=== PATIENT | male | born 1950 | race Caucasian/White ===

== ENCOUNTER → 2016-09-22 | Outpatient (CLI) | payer OTHER ==
[~2016-09-22] MED LIST: ALBU8I INH; ALBUAER3 INH; BUPR-197 PO; BUPR100CR PO; DEXE15CA PO; FLON0.053; FLOVENT110 MCG/A INH; FLUT1SPR5 EACH NARE; FLUTI110I INH; MECL-62 PO; METH2.5 PO; OMEP20TA PO; PRIL20CA PO; RAPA4CAP PO; TAMS0.4C67 PO; THEO300T11 PO; THEO300T4 PO; TREX15TA PO
[2016-09-22 14:45] LABS: AUTOMATED NEUTROPHIL # 3.7 TH/MM3 (1.8-7.7); BASOPHIL % 0.8 % (0.0-2.0); EOSINOPHIL # 0.1 TH/MM3 (0-0.4); EOSINOPHIL % 2.2 % (0.0-4.0); HEMATOCRIT 40.3 % (39.0-51.0); LYMPH % 29.5 % (9.0-44.0); LYMPHOCYTE # 1.8 TH/MM3 (1.0-4.8); MEAN CELL VOLUME 100.4 FL (80.0-100.0); MEAN CORPUSCULAR HGB CONC 34.9 % (32.0-36.0); MONO % 6.9 % (0.0-8.0); NEUT % 60.6 % (16.0-70.0); PLATELET COUNT 93 TH/MM3 (150-450); RED BLOOD COUNT 4.02 MIL/MM3 (4.50-5.90); RED CELL DISTRIBUTION WIDTH 13.4 % (11.6-17.2); WHITE BLOOD COUNT 6.1 TH/MM3 (4.0-11.0)
[2016-09-22 15:04] LABS: ALT (GPT) 47 U/L (12-78); ANION GAP 8 MEQ/L (5-15); AST (GOT) 58 U/L (15-37); BICARBONATE 28.1 MEQ/L (21.0-32.0); BLOOD UREA NITROGEN 10 MG/DL (7-18); CHLORIDE 104 MEQ/L (98-107); GLOMERULAR FILTRATION RATE 95 ML/MIN (>89); GLUCOSE,FASTING 91 MG/DL (74-99); POTASSIUM 3.7 MEQ/L (3.5-5.1); SODIUM (NA) 140 MEQ/L (136-145)
[2016-09-22 15:07] LABS: ALKALINE PHOSPHATASE 163 U/L (45-117)
[2016-09-22 15:25] LABS: HEMO FLAGS AUTO DIFF
[2016-09-22 15:26] LABS: SCAN/DIFF AUTO DIFF CONFIRMED
[2016-09-22 15:27] LABS: PLATELET ESTIMATE SMEAR LOW (NORMAL); PLATELET MORPHOLOGY NORMAL (NORMAL)
== END ==
LOC: CLAB 14:26
PROVIDERS: ATTEND Internal Medicine Rheumatology
DX: L40.0 Psoriasis vulgaris (principal)
CPT/HCPCS: 36415; 80053; 85025

== ENCOUNTER → 2016-12-30 | Outpatient (CLI) | payer OTHER ==
[~2016-12-30] MED LIST changes: -ALBU8I INH; -BUPR-197 PO; -FLON0.053; -FLOVENT110 MCG/A INH; -METH2.5 PO; -PRIL20CA PO; -TAMS0.4C67 PO; -THEO300T11 PO
[2016-12-30 14:53] LABS: HEMATOCRIT 36.4 % (39.0-51.0); MEAN CELL VOLUME 102.9 FL (80.0-100.0); MEAN CORPUSCULAR HEMOGLOBIN 35.5 PG (27.0-34.0); MEAN CORPUSCULAR HGB CONC 34.5 % (32.0-36.0); PLATELET COUNT 90 TH/MM3 (150-450); RED BLOOD COUNT 3.54 MIL/MM3 (4.50-5.90); WHITE BLOOD COUNT 4.9 TH/MM3 (4.0-11.0)
[2016-12-30 15:01] LABS: REVIEW FLAG FINAL
[2016-12-30 15:10] LABS: ALT (GPT) 38 U/L (12-78); ANION GAP 7 MEQ/L (5-15); AST (GOT) 56 U/L (15-37); BICARBONATE 25.4 MEQ/L (21.0-32.0); BLOOD UREA NITROGEN 9 MG/DL (7-18); CHLORIDE 110 MEQ/L (98-107); GLOMERULAR FILTRATION RATE 108 ML/MIN (>89); GLUCOSE,FASTING 94 MG/DL (74-99); POTASSIUM 3.7 MEQ/L (3.5-5.1); SODIUM (NA) 142 MEQ/L (136-145)
[2016-12-30 15:12] LABS: ALKALINE PHOSPHATASE 170 U/L (45-117); TOTAL BILIRUBIN ADULT 1.5 MG/DL (0.2-1.0)
== END ==
LOC: CLAB 14:27
PROVIDERS: ATTEND Internal Medicine Rheumatology
DX: L40.0 Psoriasis vulgaris (principal); N40.1 Benign prostatic hyperplasia with lower urinary tract symptoms; Z79.899 Other long term (current) drug therapy
CPT/HCPCS: 36415; 80053; 84153; 85027

== ENCOUNTER → 2017-05-30 | Outpatient (CLI) | payer OTHER ==
[2017-05-30 10:57] LABS: AUTOMATED NEUTROPHIL # 4.5 TH/MM3 (1.8-7.7); BASOPHIL % 0.4 % (0.0-2.0); EOSINOPHIL # 0.1 TH/MM3 (0-0.4); EOSINOPHIL % 1.6 % (0.0-4.0); HEMATOCRIT 40.1 % (39.0-51.0); LYMPH % 21.1 % (9.0-44.0); LYMPHOCYTE # 1.3 TH/MM3 (1.0-4.8); MEAN CELL VOLUME 105.6 FL (80.0-100.0); MEAN CORPUSCULAR HEMOGLOBIN 35.9 PG (27.0-34.0); NEUT % 70.9 % (16.0-70.0); PLATELET COUNT 77 TH/MM3 (150-450); RED CELL DISTRIBUTION WIDTH 16.3 % (11.6-17.2); WHITE BLOOD COUNT 6.3 TH/MM3 (4.0-11.0)
[2017-05-30 10:58] LABS: HEMO FLAGS AUTO DIFF
[2017-05-30 11:32] LABS: ANION GAP 11 MEQ/L (5-15); AST (GOT) 115 U/L (15-37); BICARBONATE 23.5 MEQ/L (21.0-32.0); BLOOD UREA NITROGEN 14 MG/DL (7-18); CHLORIDE 106 MEQ/L (98-107); GLOMERULAR FILTRATION RATE 97 ML/MIN (>89); GLUCOSE,FASTING 96 MG/DL (74-99); POTASSIUM 3.5 MEQ/L (3.5-5.1); SODIUM (NA) 140 MEQ/L (136-145)
[2017-05-30 11:34] LABS: ALT (GPT) 48 U/L (12-78)
[2017-05-30 11:37] LABS: ALKALINE PHOSPHATASE 268 U/L (45-117); HDL CHOLESTEROL 65.1 MG/DL (40.0-60.0); LDL CHOLESTEROL 96 MG/DL (0-99); TOTAL BILIRUBIN ADULT 4.9 MG/DL (0.2-1.0)
[2017-05-30 12:20] LABS: PLATELET ESTIMATE SMEAR LOW (NORMAL); PLATELET MORPHOLOGY NORMAL (NORMAL); SCAN/DIFF AUTO DIFF CONFIRMED
== END ==
LOC: CLAB 10:24
PROVIDERS: ATTEND Family Medicine
DX: E78.5 Hyperlipidemia, unspecified (principal); R79.89 Other specified abnormal findings of blood chemistry; D69.6 Thrombocytopenia, unspecified
CPT/HCPCS: 36415; 80053; 80061; 85025

== ENCOUNTER 2017-07-10 17:12 | Inpatient (IN) | payer OTHER ==
[~2017-07-10] VITALS: Ht 177.8 cm; Wt 75.0 kg
[~2017-07-10 17:12] MED LIST changes: -OMEP20TA PO; +OMEP20TA93 PO
[2017-07-10 17:15] VITALS: BP 143/71; PULSE 118; RESP 16; TEMP 98.5; O2SAT 97
[2017-07-10] MEDS ORDERED: FOLI800T PO (17:36)
[2017-07-10] MEDS ORDERED: DIAZ10TA PO (17:36)
[2017-07-10] MEDS ORDERED: THEO300T12 PO (17:36)
[2017-07-10] MEDS ORDERED: SODIUM CHLOR 0.9% 1000 ML INJ 1,000 ML IV SCH (18:44)
[2017-07-10] MEDS ORDERED: ONDANSETRON HCL 4 MG/2 ML VIAL IVP ONE (18:45)
[2017-07-10] MEDS ORDERED: SODIUM CHLORIDE 0.9% FLUSH 10 ML FLUSH IV FLUSH PRN ×2 (18:45→22:00)
--- NOTE | 2017-07-10 18:46 | PD ---
HPI Chief Complaint: Abdominal Pain Time Seen by Provider: 18:30 Travel History International Travel<30 days: No Contact w/Intl Traveler<30days: No Traveled to known affect area: No History of Present Illness HPI 67-year-old male presents to the emergency department for evaluation of nausea and vomiting as well as abdominal pain. Patient states he has not been able to eat in the past 4 days. He also reports decreased appetite. Patient states he has an appointment for consultation with Dr. Newman in the next upcoming few days. He has bilateral inguinal hernias. Patient states he does have pain to this area as well as diffuse abdominal pain. Reports chronic abdominal distention. He does state that he drinks 4 alcoholic beverages daily. He states that his 4 years ago and he is having a hard time getting over it. Patient denies any fevers or chills. No chest pain or shortness of breath. Severity is moderate. No exacerbating or alleviating factors. 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) Social History Alcohol Use: Yes (DAILY 3 DRINKS VODKA) Tobacco Use: Yes (3 CIGARETTES/ DAY) Substance Use: No Allergies-Medications (Allergen,Severity, Reaction): Coded Allergies: Influenza Virus Vaccines (Unverified Allergy, Intermediate, SKIN REACTION , 07/10/17) levofloxacin (Unverified Allergy, Mild, "WEAKENED TENDONS", 07/10/17) Reported Meds & Prescriptions Reported Meds & Active Scripts Active Reported Diazepam 10 Mg Tab 10 Mg PO HS PRN Theophylline ER 12 HR (Theophylline) 300 Mg Tab 300 Mg PO Q12H Rapaflo (Silodosin) 4 Mg Cap 4 Mg PO DAILY Omeprazole 20 Mg Tab 20 Mg PO DAILY Trexall (Methotrexate) 15 Mg Tab 15 Mg PO Q7D Flovent Hfa 12 GM Inh (Fluticasone Propionate) 110 Mcg/Act Inh 1 Puff INH BID Flonase Nasal [place] (Fluticasone Nasal [place]) 50 Mcg/Act [place] 50 Mcg EACH NARE DAILY Dexedrine (Dextroamphetamine Sulfate) 15 Mg Cap 15 Mg PO BID Wellbutrin SR 12 HR (Bupropion HCl) 100 Mg Tab 100 Mg PO BID Proair Hfa 8.5 GM Inh (Albuterol Sulfate) 90 Mcg/Act Aer 1 Puff INH Q4H PRN 108 mcg/actuation Review of Systems Except as stated in HPI: all other systems reviewed are Neg Physical Exam Narrative GENERAL: Well-nourished, well-developed male patient, ambulatory. Afebrile. SKIN: Focused skin assessment warm/dry. Patient is jaundiced. HEAD: Normocephalic. Atraumatic. EYES: No injection or drainage. NECK: Supple, trachea midline. No JVD or lymphadenopathy. CARDIOVASCULAR: Regular rate and rhythm without murmurs, gallops, or rubs. RESPIRATORY: Breath sounds equal bilaterally. No accessory muscle use. Lungs sounds are clear to auscultation. GASTROINTESTINAL: Abdomen soft and distended. He has diffuse tenderness to palpation. Bilateral inguinal hernias are soft and easily reducible. No evidence of incarceration. MUSCULOSKELETAL: No cyanosis, or edema. BACK: Nontender without obvious deformity. No CVA tenderness. Data Data Last Documented VS Vital Signs Date Time Temp Pulse Resp B/P (MAP) Pulse Ox O2 Delivery O2 Flow Rate FiO2 07/10/17 19:29 19 99 Room Air 07/10/17 17:15 98.5 118 Orders Orders Complete Blood Count With Diff (07/10/17 18:44) Comprehensive Metabolic Panel (07/10/17 18:44) Lipase (07/10/17 18:44) Prothrombin Time / Inr (Pt) (07/10/17 18:44) Act Partial Throm Time (Ptt) (07/10/17 18:44) Urinalysis - C+S If Indicated (07/10/17 18:44) Ct Abd/Pel W Iv Contrast(Rout) (07/10/17 18:44) Iv Access Insert/Monitor (07/10/17 18:44) Ecg Monitoring (07/10/17 18:44) Oximetry (07/10/17 18:44) Ondansetron Inj (Zofran Inj) (07/10/17 18:45) Sodium Chlor 0.9% 1000 Ml Inj (Ns 1000 M (07/10/17 18:44) Sodium Chloride 0.9% Flush (Ns Flush) (07/10/17 18:45) Iohexol 350 Inj (Omnipaque 350 Inj) (07/10/17 19:49) Potassium Chloride (Kcl) (07/10/17 20:45) Sodium Chlor 0.9% 1000 Ml Inj (Ns 1000 M (07/10/17 20:45) Admit Order (Ed Use Only) (07/10/17 21:14) Labs Laboratory Tests Test 07/10/17 18:40 White Blood Count 6.8 TH/MM3 Red Blood Count 3.66 MIL/MM3 Hemoglobin 13.4 GM/DL Hematocrit 39.4 % Mean Corpuscular Volume 107.6 FL Mean Corpuscular Hemoglobin 36.7 PG Mean Corpuscular Hemoglobin Concent 34.1 % Red Cell Distribution Width 16.7 % Platelet Count 102 TH/MM3 Mean Platelet Volume 9.0 FL Neutrophils (%) (Auto) 67.1 % Lymphocytes (%) (Auto) 22.1 % Monocytes (%) (Auto) 8.4 % Eosinophils (%) (Auto) 1.6 % Basophils (%) (Auto) 0.8 % Neutrophils # (Auto) 4.5 TH/MM3 Lymphocytes # (Auto) 1.5 TH/MM3 Monocytes # (Auto) 0.6 TH/MM3 Eosinophils # (Auto) 0.1 TH/MM3 Basophils # (Auto) 0.1 TH/MM3 CBC Comment DIFF FINAL Differential Comment Prothrombin Time 17.9 SEC Prothromb Time International Ratio 1.6 RATIO Activated Partial Thromboplast Time 34.5 SEC Blood Urea Nitrogen 8 MG/DL Creatinine 0.80 MG/DL Random Glucose 127 MG/DL Total Protein 6.5 GM/DL Albumin 2.8 GM/DL Calcium Level 8.4 MG/DL Alkaline Phosphatase 199 U/L Aspartate Amino Transf (AST/SGOT) 79 U/L Alanine Aminotransferase (ALT/SGPT) 45 U/L Total Bilirubin 5.0 MG/DL Sodium Level 135 MEQ/L Potassium Level 3.2 MEQ/L Chloride Level 101 MEQ/L Carbon Dioxide Level 25.8 MEQ/L Anion Gap 8 MEQ/L Estimat Glomerular Filtration Rate 97 ML/MIN Lipase 187 U/L MDM Medical Decision Making Medical Screen Exam Complete: Yes Emergency Medical Condition: Yes Medical Record Reviewed: Yes Interpretation(s) Last Impressions Abdomen/Pelvis CT 07/10/17 2558 Signed Impressions: Service Date/Time: Monday, July 10, 2017 19:42 - CONCLUSION: 1. Liver demonstrates features at diagnostic of cirrhosis and possibly coexisting steatosis. No focal liver lesion is identified. There are associated findings related to the chronic liver disease indicating portal hypertension including a recannulized paraumbilical vein, collateral blood vessels, ascites, and splenomegaly. 2. Bilateral inguinal hernias containing fluid and fat. Pal Light MD Differential Diagnosis Acute pancreatitis versus liver failure versus diverticulitis versus bowel obstruction versus UTI versus gastroenteritis Narrative Course 67-year-old male presents to the emergency department for decreased uptake, vomiting, abdominal pain. Patient appears jaundiced on exam. CBC, CMP, lipase , PTT, PT/INR, UA are ordered and pending. CT abdomen/pelvis with IV contrast is ordered and pending. Patient is given normal saline 1 L IV bolus, Zofran 4 mg IV. CBC shows no acute abnormality. CMP shows hyponatremia 135, hypokalemia of 3.2 , glucose 127, total bilirubin 5.0, AST 79, alkaline phosphatase 199. Lipase is 187. PT is 17.9, INR 1.6, PTT 34.5. UA [-]. CT abdomen/pelvis shows 1. Liver demonstrates features at diagnostic of cirrhosis and possibly coexisting steatosis. No focal liver lesion is identified. There are associated findings related to the chronic liver disease indicating portal hypertension including a recannulized paraumbilical vein, collateral blood vessels, ascites, and splenomegaly; 2. Bilateral inguinal hernias containing fluid and fat. Upon reexamination, patient still tachycardic with heart rate in the 120s. He is given another liter of IV fluids. Patient will be admitted to hospital for liver cirrhosis, dehydration. Residents accepted admission. Diagnosis Primary Impression: Liver cirrhosis Qualified Codes: K70.31 - Alcoholic cirrhosis of liver with ascites Additional Impressions: Nausea & vomiting Qualified Codes: R11.2 - Nausea with vomiting, unspecified Dehydration Admitting Information Admitting Physician Requests: Heather Hooper Jul 10, 2017 18:46
[2017-07-10 19:14] LABS: AUTOMATED NEUTROPHIL # 4.5 TH/MM3 (1.8-7.7); BASOPHIL # 0.1 TH/MM3 (0-0.2); BASOPHIL % 0.8 % (0.0-2.0); EOSINOPHIL # 0.1 TH/MM3 (0-0.4); EOSINOPHIL % 1.6 % (0.0-4.0); HEMATOCRIT 39.4 % (39.0-51.0); HEMO FLAGS DIFF FINAL; LYMPH % 22.1 % (9.0-44.0); LYMPHOCYTE # 1.5 TH/MM3 (1.0-4.8); MEAN CELL VOLUME 107.6 FL (80.0-100.0); MEAN CORPUSCULAR HEMOGLOBIN 36.7 PG (27.0-34.0); MEAN CORPUSCULAR HGB CONC 34.1 % (32.0-36.0); MONO % 8.4 % (0.0-8.0); NEUT % 67.1 % (16.0-70.0); PLATELET COUNT 102 TH/MM3 (150-450); RED BLOOD COUNT 3.66 MIL/MM3 (4.50-5.90); RED CELL DISTRIBUTION WIDTH 16.7 % (11.6-17.2); WHITE BLOOD COUNT 6.8 TH/MM3 (4.0-11.0)
[2017-07-10 19:24] LABS: ALT (GPT) 45 U/L (12-78); ANION GAP 8 MEQ/L (5-15); AST (GOT) 79 U/L (15-37); BICARBONATE 25.8 MEQ/L (21.0-32.0); BLOOD UREA NITROGEN 8 MG/DL (7-18); CHLORIDE 101 MEQ/L (98-107); GLOMERULAR FILTRATION RATE 97 ML/MIN (>89); POTASSIUM 3.2 MEQ/L (3.5-5.1); SODIUM (NA) 135 MEQ/L (136-145)
[2017-07-10 19:27] LABS: ALKALINE PHOSPHATASE 199 U/L (45-117)
[2017-07-10 19:29] VITALS: RESP 19; O2SAT 99
[2017-07-10 19:37] LABS: APTT (PATIENT) 34.5 SEC (24.3-30.1); INTERNATIONAL NORMALIZED RATIO 1.6 RATIO; PROTHROMBIN TIME - PATIENT 17.9 SEC (9.8-11.6)
[2017-07-10] MEDS ORDERED: IOHEXOL 350 MG/ML 10 ML VIAL (for RAD DIAG) IVCONTRAST ONE (19:49)
--- NOTE | 2017-07-10 20:08 | RADRPT ---
EXAM DATE/TIME: 07/10/2017 19:42 [facility] COMPARISON: No previous studies available for comparison. INDICATIONS : Diffuse abdomen pain with nausea and vomiting for four days. IV CONTRAST: 72 cc Omnipaque 350 (iohexol) IV ORAL CONTRAST: No oral contrast ingested. RADIATION DOSE: 8.37 CTDIvol (mGy) MEDICAL HISTORY : Gastroesophageal reflux disease. Carcinoma, basal cell. Hernia, inguinal. SURGICAL HISTORY : None. ENCOUNTER: Initial ACUITY: 4 - 6 days PAIN SCALE: 6/10 LOCATION: Bilateral abdomen TECHNIQUE: Volumetric scanning of the abdomen and pelvis was performed. Using automated exposure control and ad justment of the mA and/or kV according to patient size, radiation dose was kept as low as reasonably achievable to obtain optimal diagnostic quality images. DICOM format image data is available electro nically for review and comparison. FINDINGS: LOWER LUNGS: There is mild atelectasis at the lung bases. LIVER: The liver measures 17.6 cm and demonstrates a nodular contour with very heterogeneous low-density. Ma in portal vein is patent. There is a recannulized paraumbilical vein. No enhancing liver lesion is ap preciated. Gallbladder is distended and a contains a few small stones. There is no dilation of the b iliary tree. SPLEEN: Mildly enlarged measuring 13.6 cm. PANCREAS: No acute abnormality. KIDNEYS: Normal in size and shape. There is no mass, stone or hydronephrosis. ADRENAL GLANDS: Within normal limits. VASCULAR: There is no aortic aneurysm. There is mild atherosclerotic disease. A recannulized paraumbilical vein is present. Small collateral vessels are present in the left upper quadrant. BOWEL/MESENTERY: The stomach, small bowel, and colon demonstrate no acute abnormality. There is no free intraperitone al air. There is a moderate volume of free fluid in the abdomen and pelvis. ABDOMINAL WALL: No acute abnormality. RETROPERITONEUM: There is no lymphadenopathy. BLADDER: No wall thickening or mass. REPRODUCTIVE: Within normal limits. INGUINAL: There is no lymphadenopathy. There are bilateral inguinal hernias containing fluid and fat. MUSCULOSKELETAL: There are degenerative changes of the lumbar spine. CONCLUSION: 1. Liver demonstrates features at diagnostic of cirrhosis and possibly coexisting steatosis. No focal liver lesion is identified. There are associated findings related to the chronic liver disease indic ating portal hypertension including a recannulized paraumbilical vein, collateral blood vessels, asci daljit, and splenomegaly. 2. Bilateral inguinal hernias containing fluid and fat. Pal Light MD on July 10, 2017 at 20:00 Board Certified Radiologist. This report was verified electronically.
[2017-07-10] MEDS ORDERED: SODIUM CHLOR 0.9% 1000 ML INJ 1,000 ML IV ONE (20:45)
[2017-07-10] MEDS ORDERED: POTASSIUM CHLORIDE 20 MEQ CONTROLLED RELEASE TAB PO ONE (20:45)
--- NOTE | 2017-07-10 21:40 | HHI.HP ---
[facility] Service Family Medicine Primary Care Physician Serjio Alvarado MD Admission Diagnosis Diagnoses: International Travel<30 Days: No Contact w/Intl Traveler<30days: No Known Affected Area: No History of Present Illness Mr. Hernández is a 67-year-old white male with past medical history of alcohol abuse and depression presenting to the ED stating that he "hadn't been feeling well" for the past few days. He states that he lost his appetite 4 days ago. He also has been feeling some discomfort around his abdomen. He describes it as a 6 out of 10 jolt-like pain in his lower abdomen where his bilateral inguinal hernias are, that shoots around his lower abdomen. Worse with coughing and movement. He usually plays tennis regularly. However with his last session that he played last week he felt that the torque caused discomfort. Nothing makes the pain/discomfort better. He has also noticed that his abdomen has been expanding. He noticed that he has diastasis recti beginning a year and a half ago. He is currently being seen by his doctor for the bilateral inguinal hernias. He states that they are reducible, but he noticed that they have gotten larger over the past few days. He has had a nonproductive cough that started 2 days ago. He states that it is "reflex stimulated." He has been having nausea and vomiting. He states that he usually has no trouble swallowing 3 pills, but he now has trouble swallowing 1 pill. After this he vomits immediately. He has tried to drink Coke and water and eat Greek ice. However, nothing much is staying down. Sometimes there is no inciting event that causes the vomiting. He is vomited several times today. Nonbloody, nonbilious. No fevers or chills, no chest pain, no shortness of breath. No easy bleeding or bruising. He has been drinking 3-4 small cups of vodka daily for 4 years. This started when his passed in 2012. He felt that drinking now and the pain from her . He has been seeing a psychiatrist regularly. His last appointment was last month. No SI/HI. (Francisca Ware MD R1) Review of Systems Constitutional: COMPLAINS OF: Change in appetite, DENIES: Fever, Weight gain, Weight loss, Chills Eyes: DENIES: Blurred vision, Double Vision Ears, nose, mouth, throat: COMPLAINS OF: Running Nose (allergies), DENIES: Tinnitus, Vertigo Respiratory: COMPLAINS OF: Cough, DENIES: Wheezing, Sputum production, Shortness of breath Cardiovascular: DENIES: Chest pain Gastrointestinal: COMPLAINS OF: Constipation, DENIES: Black stools, Bloody stools Genitourinary: COMPLAINS OF: Nocturia (BPH) Musculoskeletal: DENIES: Joint pain Integumentary: COMPLAINS OF: Rash Hematologic/lymphatic: DENIES: Bruising Neurologic: COMPLAINS OF: Localized weakness (overall), DENIES: Headache, Tremor Psychiatric: COMPLAINS OF: Depression, DENIES: Suicidal Ideation (Francisca Ware MD R1) Past Family Social History Past Medical History Psoriasis Major depressive disorder BPH Inguinal hernia bilateral Asthma GERD Seasonal allergies Past Surgical History Left Meniscus tear repair 2000 Melanoma in-situ removed on left face Bilateral intra-ocular lens replaced Reported Medications Reported Meds & Active Scripts Active Reported Diazepam 10 Mg Tab 10 Mg PO HS PRN Theophylline ER 12 HR (Theophylline) 300 Mg Tab 300 Mg PO Q12H Rapaflo (Silodosin) 4 Mg Cap 4 Mg PO DAILY Omeprazole 20 Mg Tab 20 Mg PO DAILY Trexall (Methotrexate) 15 Mg Tab 15 Mg PO Q7D Flovent Hfa 12 GM Inh (Fluticasone Propionate) 110 Mcg/Act Inh 1 Puff INH BID Flonase Nasal [place] (Fluticasone Nasal [place]) 50 Mcg/Act [place] 50 Mcg EACH NARE DAILY Dexedrine (Dextroamphetamine Sulfate) 15 Mg Cap 15 Mg PO BID Wellbutrin SR 12 HR (Bupropion HCl) 100 Mg Tab 100 Mg PO BID Proair Hfa 8.5 GM Inh (Albuterol Sulfate) 90 Mcg/Act Aer 1 Puff INH Q4H PRN 108 mcg/actuation (Francisca Ware MD R1) Allergies: Coded Allergies: Influenza Virus Vaccines (Unverified Allergy, Intermediate, SKIN REACTION , 07/10/17) levofloxacin (Unverified Allergy, Mild, "WEAKENED TENDONS", 07/10/17) Family History Mother and father healthy Social History Lives in [place] in 2012 Retired pharmacist Alcohol- 3-4 cups of vodka a day for 4 years Tobacco- 3 cigarettes for 20 years Illicit drugs- none (Francisca Ware MD R1) Physical Exam Vital Signs Vital Signs Date Time Temp Pulse Resp B/P (MAP) Pulse Ox O2 Delivery O2 Flow Rate FiO2 07/10/17 19:29 19 99 Room Air 07/10/17 17:15 98.5 118 16 143/71 (95) 97 Physical Exam GENERAL: This is a well-nourished, well-developed patient white male sitting in bed, in no apparent distress. SKIN: No ecchymoses. psoriasis plagues on bilateral LEs. Cool and dry. Spider angiomata on upper chest. 1x1cm asymmetric mole on upper right back. HEAD: Atraumatic. Normocephalic. EYES: Pupils equal round and reactive. Extraocular motions intact. scleral icterus. No injection or drainage. ENT: Nose without bleeding, purulent drainage or septal hematoma. Throat without erythema, tonsillar hypertrophy or exudate. Uvula midline. Airway patent. NECK: Trachea midline. No JVD or lymphadenopathy. Supple, nontender, no meningeal signs. CARDIOVASCULAR: tachycardic, Regular rate and rhythm without murmurs, gallops, or rubs. RESPIRATORY: Clear to auscultation. Breath sounds equal bilaterally. No wheezes , rales, or rhonchi. GASTROINTESTINAL: Abdomen soft, non-tender, distended. No hepato-splenomegaly, or palpable masses. No guarding. No fluid wave. MUSCULOSKELETAL: Extremities without clubbing, cyanosis, or edema. No joint tenderness, effusion, or edema noted. No calf tenderness. Negative Homans sign bilaterally. NEUROLOGICAL: Awake and alert. Motor and sensory grossly within normal limits. Five out of 5 muscle strength in all muscle groups. Normal speech. Tremulous in bilateral hands. Laboratory Laboratory Tests Test 07/10/17 18:40 White Blood Count 6.8 Red Blood Count 3.66 Hemoglobin 13.4 Hematocrit 39.4 Mean Corpuscular Volume 107.6 Mean Corpuscular Hemoglobin 36.7 Mean Corpuscular Hemoglobin Concent 34.1 Red Cell Distribution Width 16.7 Platelet Count 102 Mean Platelet Volume 9.0 Neutrophils (%) (Auto) 67.1 Lymphocytes (%) (Auto) 22.1 Monocytes (%) (Auto) 8.4 Eosinophils (%) (Auto) 1.6 Basophils (%) (Auto) 0.8 Neutrophils # (Auto) 4.5 Lymphocytes # (Auto) 1.5 Monocytes # (Auto) 0.6 Eosinophils # (Auto) 0.1 Basophils # (Auto) 0.1 CBC Comment DIFF FINAL Differential Comment Prothrombin Time 17.9 Prothromb Time International Ratio 1.6 Activated Partial Thromboplast Time 34.5 Blood Urea Nitrogen 8 Creatinine 0.80 Random Glucose 127 Total Protein 6.5 Albumin 2.8 Calcium Level 8.4 Alkaline Phosphatase 199 Aspartate Amino Transf (AST/SGOT) 79 Alanine Aminotransferase (ALT/SGPT) 45 Total Bilirubin 5.0 Sodium Level 135 Potassium Level 3.2 Chloride Level 101 Carbon Dioxide Level 25.8 Anion Gap 8 Estimat Glomerular Filtration Rate 97 Lipase 187 (Francisca Ware MD R1) Result Diagram: 07/10/17183907/10/171839 Imaging Last Impressions Abdomen/Pelvis CT 07/10/171843 Signed Impressions: Service Date/Time: Monday, July 10, 2017 19:42 - CONCLUSION: 1. Liver demonstrates features at diagnostic of cirrhosis and possibly coexisting steatosis. No focal liver lesion is identified. There are associated findings related to the chronic liver disease indicating portal hypertension including a recannulized paraumbilical vein, collateral blood vessels, ascites, and splenomegaly. 2. Bilateral inguinal hernias containing fluid and fat. Pal Light MD (Francisca Ware MD R1) Caprini VTE Risk Assessment Caprini VTE Risk Assessment: Mod/High Risk (score >= 2) VTE Pharm Contraindication: Coagulopathy,INR elevated Caprini Risk Assessment Model Point Value = 1 Point Value = 2 Point Value = 3 Point Value = 5 Age 41-60 Minor surgery BMI > 25 kg/m2 Swollen legs Varicose veins or History of unexplained or recurrent spontaneous Oral contraceptives or hormone replacement Sepsis (< 1 month) Serious lung disease, including pneumonia (< 1 month) Abnormal pulmonary function Acute myocardial infarction Congestive heart failure (< 1 month) History of inflammatory bowel disease Medical patient at bed rest Age 61-74 Arthroscopic surgery Major open surgery (> 45 min) Laparoscopic surgery (> 45 min) Malignancy Confined to bed (> 72 hours) Immobilizing plaster cast Central venous access Age >= 75 History of VTE Family history of VTE Factor V Leiden Prothrombin [id number] Lupus anticoagulant Anticardiolipin antibodies Elevated serum homocysteine Heparin-induced thrombocytopenia Other congenital or acquired thrombophilia Stroke (< 1 month) Elective arthroplasty Hip, pelvis, or leg fracture Acute spinal cord injury (< 1 month) Prophylaxis Regimen Total Risk Factor Score Risk Level Prophylaxis Regimen 0-1 Low Early ambulation 2 Moderate Order ONE of the following: *Sequential Compression Device (SCD) *Heparin 5000 units SQ BID 3-4 Higher Order ONE of the following medications: *Heparin 5000 units SQ TID *Enoxaparin/Lovenox 40 mg SQ daily (WT < 150 kg, CrCl > 30 mL/min) *Enoxaparin/Lovenox 30 mg SQ daily (WT < 150 kg, CrCl > 10-29 mL/min) *Enoxaparin/Lovenox 30 mg SQ BID (WT < 150 kg, CrCl > 30 mL/min) AND/OR *Sequential Compression Device (SCD) 5 or more Highest Order ONE of the following medications: *Heparin 5000 units SQ TID (Preferred with Epidurals) *Enoxaparin/Lovenox 40 mg SQ daily (WT < 150 kg, CrCl > 30 mL/min) *Enoxaparin/Lovenox 30 mg SQ daily (WT < 150 kg, CrCl > 10-29 mL/min) *Enoxaparin/Lovenox 30 mg SQ BID (WT < 150 kg, CrCl > 30 mL/min) AND *Sequential Compression Device (SCD) (Francisca Ware MD R1) Assessment and Plan Assessment and Plan Mr. Hernández is a 67 yo white male with a PMH of alcohol abuse and depression presenting with nausea/vomiting and abdominal discomfort. He is admitted to observation. Code Status Full code Discussed Condition With Dr. Jacob Cage (Francisca Ware MD R1) Attending Attestation THIS CASE WAS DISCUSSED WITH THE RESIDENT PHYSICIANS. I HAVE REVIEWED THE RECORD AND AGREE WITH THE ABOVE NOTE AND PLAN OF CARE WAS DISCUSSED. I HAVE AUTHORIZED THE ORDER FOR ADMISSION TO AN IN-PATIENT STATUS. (Lianne Melissa MD) Problem List: (1) Nausea & vomiting ICD Codes: R11.2 - Nausea with vomiting, unspecified Status: Acute Plan: Nausea and vomiting of 4 days duration with decrease in appetite. May be due to alcohol intake vs gastroenteritis vs abdominal discomfort vs cirrhosis * 2 1L boluses given in ED * NS + KCl 20meg IVF at 42mls/hr * Zofran 4mg IV for nausea (2) Liver cirrhosis ICD Codes: K74.60 - Unspecified cirrhosis of liver Status: Acute Plan: CT abdomen/pelvis showed features of cirrhosis. There were also associated findings related to the chronic liver disease indicating portal hypertension including a recannulized paraumbilical vein, collateral blood vessels, ascites, and splenomegaly. Ammonia level elevated at 51. LFTs elevated. INR 1.6. MELD score: 19 points, 6.0% estimated 3-month mortality * Do not suspect SBP at this time because afebrile, no AMS or leukocytosis, will hold off on antibiotic therapy * Will consider diagnostic paracentesis, will hold off at this time * One doses of spironolactone 100mg po and Lasix 40mg po for ascites * Daily weights * Repeat ammonia in the AM * Will order hepatitis profile (3) Abdominal pain ICD Codes: R10.9 - Unspecified abdominal pain Status: Acute Plan: Lower abdominal pain of a few days duration located in the area of bilateral inguinal hernias. CT abdomen/pelvis shows they contain fluid and fat. Discomfort may also be due to ascites. CT shows moderate fluid in the abdomen and pelvis. * see above for plan * Oxycodone 5mg po q4h for pain 3-5 * Oxycodone 10mg po q4h for pain 6-10 (4) Alcohol abuse ICD Codes: F10.10 - Alcohol abuse, uncomplicated Status: Chronic Plan: Pt has been imbibing in alcohol for 4 years. CBC shows macrocytosis. CMP shows AST>ALT. * CIWA protocol * Oral thiamine, B12, and folic acid qD * Advised patient to decrease alcohol intake (5) Major depressive disorder ICD Codes: F32.9 - Major depressive disorder, single episode, unspecified Status: Chronic Plan: Patient sees an outside psychiatrist for treatment. Declined to see a psychiatrist while inpatient. * Bupropion HCl 100mg po BID (6) Asthma ICD Codes: J45.909 - Unspecified asthma, uncomplicated Status: Chronic Plan: * HELD at home albuterol due to hypokalemia * Continue at home Theophylline ER 300mg po q12h * Continue at home Fluticasone spray (7) GERD (gastroesophageal reflux disease) ICD Codes: K21.9 - Gastro-esophageal reflux disease without esophagitis Status: Chronic Plan: * Converted at home medication of omeprazole to pantoprazole 20mg po qD for hospital stay (8) BPH with urinary obstruction ICD Codes: N40.1 - Benign prostatic hyperplasia with lower urinary tract symptoms; N13.8 - Other obstructive and reflux uropathy Status: Chronic Plan: * Continue at home medication of Tamsulosin 0.4mg po qD (9) FEN Status: Acute Plan: Fluids: NS + KCL 20meq @ 42mls/hr Electrolytes: hypokalemia noted, given 40meq of Kcl in ED, monitor and replete as needed Nutrition: regular basic diet, sodium restriction to 2g DVT Prophylaxis: Early ambulation. bilateral SCDs GI Prophylaxis: none indicated at this time (Francisca Ware MD R1) Physician Certification 2 Midnight Certification Type: Admission for Inpatient Services Order for Inpatient Services The services are ordered in accordance with Medicare regulations or non- Medicare payer requirements, as applicable. In the case of services not specified as inpatient-only, they are appropriately provided as inpatient services in accordance with the 2-midnight benchmark. Estimated LOS (days): 2 days is the estimated time the patient will need to remain in the hospital, assuming treatment plan goals are met and no additional complications. Post-Hospital Plan: Home (Francisca Ware MD R1) 2 Midnight Certification Type: Admission for Inpatient Services Post-Hospital Plan: Home (Lianne Melissa MD) Problem Qualifiers (1) Nausea & vomiting: Qualified Codes: R11.2 - Nausea with vomiting, unspecified (2) Liver cirrhosis: Qualified Codes: K70.31 - Alcoholic cirrhosis of liver with ascites (3) Abdominal pain: Qualified Codes: R10.30 - Lower abdominal pain, unspecified (4) Major depressive disorder: (5) Asthma: Qualified Codes: J45.909 - Unspecified asthma, uncomplicated (6) GERD (gastroesophageal reflux disease): Qualified Codes: K21.9 - Gastro-esophageal reflux disease without esophagitis Francisca Ware MD R1 Jul 10, 2017 21:40 Lianne Melissa MD Jul 11, 2017 16:01
[2017-07-10] MEDS ORDERED: BISACODYL 10 MG SUPP RECTAL PRN (22:00)
[2017-07-10] MEDS ORDERED: SENNOSIDES 8.6 MG TAB PO PRN (22:00)
[2017-07-10] MEDS ORDERED: LORazepam 1 MG TAB PO PRN (22:00)
[2017-07-10] MEDS ORDERED: FLUMAZENIL 0.5 MG/5 ML VIAL IV PUSH PRN (22:00)
[2017-07-10] MEDS: THEOPHYLLINE ER 12 HR 300 MG TABCR PO SCH (22:00)
[2017-07-10] MEDS ORDERED: LACTULOSE SYRUP 20 GM/30 ML CUP PO PRN (22:00)
[2017-07-10] MEDS ORDERED: LORazepam 2 MG TAB PO PRN (22:00)
[2017-07-10] MEDS ORDERED: NALOXONE HCL 0.4 MG/ML AMP IV PUSH PRN (22:00)
[2017-07-10] MEDS ORDERED: MAGNESIUM HYDROXIDE SUSP 30 ML CUP PO PRN (22:00)
[2017-07-10] MEDS ORDERED: LORazepam 2 MG/ML VIAL IV PUSH PRN ×4 (22:00)
[2017-07-10] MEDS ORDERED: NS + KCL 20 MEQ INJ 1,000 ML IV SCH (22:30)
[2017-07-10] MEDS ORDERED: FUROSEMIDE 40 MG TAB PO ONE (22:30)
[2017-07-10] MEDS ORDERED: SPIRONOLACTONE 100 MG TAB PO ONE (22:30)
[2017-07-10 23:46] VITALS: BP 136/74; RESP 18; TEMP 98.1; O2SAT 98
[2017-07-11] VITALS (13 sets, daily range): BP systolic 121–138; BP diastolic 62–76; PULSE 107–163; RESP 16–20; TEMP 97.8–98.2; O2SAT 90–94
[2017-07-11] MEDS: THEOPHYLLINE ER 12 HR 300 MG TABCR PO SCH ×2 (00:03→21:35)
[2017-07-11] MEDS ORDERED: ACETAMINOPHEN 325 MG TAB PO PRN (00:15)
[2017-07-11] MEDS ORDERED: ONDANSETRON HCL 4 MG/2 ML VIAL IVP PRN (00:15)
[2017-07-11 07:29] LABS: AUTOMATED NEUTROPHIL # 4.3 TH/MM3 (1.8-7.7); BASOPHIL # 0.1 TH/MM3 (0-0.2); EOSINOPHIL # 0.2 TH/MM3 (0-0.4); EOSINOPHIL % 2.4 % (0.0-4.0); HEMATOCRIT 37.3 % (39.0-51.0); HEMO FLAGS DIFF FINAL; LYMPH % 29.8 % (9.0-44.0); LYMPHOCYTE # 2.3 TH/MM3 (1.0-4.8); MEAN CELL VOLUME 109.9 FL (80.0-100.0); MEAN CORPUSCULAR HEMOGLOBIN 38.2 PG (27.0-34.0); MEAN CORPUSCULAR HGB CONC 34.7 % (32.0-36.0); MONO % 9.8 % (0.0-8.0); PLATELET COUNT 103 TH/MM3 (150-450); RED BLOOD COUNT 3.39 MIL/MM3 (4.50-5.90); RED CELL DISTRIBUTION WIDTH 17.4 % (11.6-17.2); WHITE BLOOD COUNT 7.6 TH/MM3 (4.0-11.0)
[2017-07-11 07:46] LABS: PROTHROMBIN TIME - PATIENT 19.6 SEC (9.8-11.6)
[2017-07-11 07:47] LABS: APTT (PATIENT) 33.6 SEC (24.3-30.1); INTERNATIONAL NORMALIZED RATIO 1.7 RATIO
[2017-07-11 08:16] LABS: ALKALINE PHOSPHATASE 195 U/L (45-117); ALT (GPT) 44 U/L (12-78); ANION GAP 8 MEQ/L (5-15); AST (GOT) 90 U/L (15-37); BICARBONATE 25.1 MEQ/L (21.0-32.0); BLOOD UREA NITROGEN 7 MG/DL (7-18); CHLORIDE 102 MEQ/L (98-107); GLOMERULAR FILTRATION RATE 106 ML/MIN (>89); SODIUM (NA) 135 MEQ/L (136-145); TOTAL BILIRUBIN ADULT 5.3 MG/DL (0.2-1.0)
[2017-07-11 08:20] LABS: POTASSIUM 5.1 MEQ/L (3.5-5.1)
[2017-07-11] MEDS: FLUTICASONE PROPIONATE 50 MCG/ACT 16 GM NASAL SPRAY EACH NARE SCH (09:00)
[2017-07-11] MEDS ORDERED: FOLIC ACID 1 MG TAB PO SCH (09:00)
[2017-07-11] MEDS ORDERED: SODIUM CHLORIDE 0.9% FLUSH 10 ML FLUSH IV FLUSH SCH (09:00)
[2017-07-11] MEDS: FLUTICASONE PROPIONATE 110 MCG/ACT 12 GM INHALER INH SCH (09:00)
[2017-07-11] MEDS: DOCUSATE SODIUM 50 MG/SENNA 8.6 MG TAB PO SCH ×2 (09:00→21:00)
[2017-07-11] MEDS ORDERED: PANTOPRAZOLE SOD 20 MG DELAYED RELEASE TAB PO SCH (09:00)
[2017-07-11] MEDS ORDERED: DEXTROAMPHETAMINE SULFATE 5 MG TAB PO SCH (09:00)
--- NOTE | 2017-07-11 11:09 | HHI.FPPN ---
Problem Problem List: (1) Liver cirrhosis (2) Portal hypertension with esophageal varices (3) Ascites (4) ETOH abuse (5) Nausea & vomiting (6) Bilateral inguinal hernia Subjective Subjective 67 year old male with h/o ETOH abuse and depression since the of his 4 years ago was admitted through the ED for Dehydration. 4 days prior to admission, was generally weak, loss of appetite and some pain/discomfrot into his abdomen. 6/10 pain -- lower abd around his bilateral inguinal hernias. He also noted that the hernias while still reducible appeared to be larger and overall his abdomen/stomach appeared to be larger. His pain in his abdomen was worse with cough and movement. He endorsed a few days of nausea and vomiting. On admission, he denied blood in the emesis but at the time of the evaluation today he was having blood flecks into his emesis by visual inspection with the nurse and himself. He has been drinking 3-4 cups of vodka daily for 4 years. This started when his passed in 2012. He has been seeing a psychiatrist regularly. No SI/HI. At the time of exam this morning -- he reports his symptoms not much different or changed except the blood flecks in the emesis at this time. Review of Systems Constitutional: COMPLAINS OF: Change in appetite, DENIES: Fever, Weight gain, Weight loss, Chills Eyes: DENIES: Blurred vision, Double Vision Ears, nose, mouth, throat: COMPLAINS OF: Running Nose (allergies), DENIES: Tinnitus, Vertigo Respiratory: COMPLAINS OF: Cough, DENIES: Wheezing, Sputum production, Shortness of breath Cardiovascular: DENIES: Chest pain Gastrointestinal: COMPLAINS OF: Constipation, DENIES: Black stools, Bloody stools Genitourinary: COMPLAINS OF: Nocturia (BPH) Musculoskeletal: DENIES: Joint pain Integumentary: COMPLAINS OF: Rash Hematologic/lymphatic: DENIES: Bruising Neurologic: COMPLAINS OF: Localized weakness (overall), DENIES: Headache, Tremor Psychiatric: COMPLAINS OF: Depression, DENIES: Suicidal Ideation Past Family Social History Past Medical History Psoriasis Major depressive disorder BPH Inguinal hernia bilateral Asthma GERD Seasonal allergies Past Surgical History Left Meniscus tear repair 2000 Melanoma in-situ removed on left face Bilateral intra-ocular lens replaced Reported Medications Reported Meds & Active Scripts Active Reported Diazepam 10 Mg Tab 10 Mg PO HS PRN Theophylline ER 12 HR (Theophylline) 300 Mg Tab 300 Mg PO Q12H Rapaflo (Silodosin) 4 Mg Cap 4 Mg PO DAILY Omeprazole 20 Mg Tab 20 Mg PO DAILY Trexall (Methotrexate) 15 Mg Tab 15 Mg PO Q7D Flovent Hfa 12 GM Inh (Fluticasone Propionate) 110 Mcg/Act Inh 1 Puff INH BID Flonase Nasal [place] (Fluticasone Nasal [place]) 50 Mcg/Act [place] 50 Mcg EACH NARE DAILY Dexedrine (Dextroamphetamine Sulfate) 15 Mg Cap 15 Mg PO BID Wellbutrin SR 12 HR (Bupropion HCl) 100 Mg Tab 100 Mg PO BID Proair Hfa 8.5 GM Inh (Albuterol Sulfate) 90 Mcg/Act Aer 1 Puff INH Q4H PRN 108 mcg/actuation Allergies: Coded Allergies: Influenza Virus Vaccines (Unverified Allergy, Intermediate, SKIN REACTION , 07/10/17) levofloxacin (Unverified Allergy, Mild, "WEAKENED TENDONS", 07/10/17) Family History Mother and father healthy Social History Retired pharmacist Alcohol- 3-4 cups of vodka a day for 4 years Tobacco- 3 cigarettes for 20 years Illicit drugs- none Hospital Objective Objective Last Impressions Abdomen/Pelvis CT 07/10/17 1844 Signed Impressions: Service Date/Time: Monday, July 10, 2017 19:42 - CONCLUSION: 1. Liver demonstrates features at diagnostic of cirrhosis and possibly coexisting steatosis. No focal liver lesion is identified. There are associated findings related to the chronic liver disease indicating portal hypertension including a recannulized paraumbilical vein, collateral blood vessels, ascites, and splenomegaly. 2. Bilateral inguinal hernias containing fluid and fat. Pal Light MD Laboratory Tests - Abnormals Test 07/10/17 18:40 07/10/17 23:10 07/11/17 07:08 Red Blood Count 3.66 MIL/MM3 3.39 MIL/MM3 Mean Corpuscular Volume 107.6 FL 109.9 FL Mean Corpuscular Hemoglobin 36.7 PG 38.2 PG Platelet Count 102 TH/MM3 103 TH/MM3 Monocytes (%) (Auto) 8.4 % 9.8 % Prothrombin Time 17.9 SEC 19.6 SEC Activated Partial Thromboplast Time 34.5 SEC 33.6 SEC Random Glucose 127 MG/DL Albumin 2.8 GM/DL 2.6 GM/DL Calcium Level 8.4 MG/DL 8.1 MG/DL Alkaline Phosphatase 199 U/L 195 U/L Aspartate Amino Transf (AST/SGOT) 79 U/L 90 U/L Total Bilirubin 5.0 MG/DL 5.3 MG/DL Sodium Level 135 MEQ/L 135 MEQ/L Potassium Level 3.2 MEQ/L Ammonia 51 MCMOL/L 57 MCMOL/L Hematocrit 37.3 % Red Cell Distribution Width 17.4 % Vital Signs 07/10/17 07/10/17 07/10/17 07/11/17 17:15 19:29 23:46 01:34 Temp 98.5 98.1 Pulse 118 120 Resp 16 19 18 B/P (MAP) 143/71 (95) 136/74 (94) Pulse Ox 97 99 98 O2 Delivery Room Air 07/11/17 07/11/17 07/11/17 07/11/17 03:30 04:00 07:52 08:42 Temp 98.0 98.0 Pulse 117 120 107 123 Resp 18 18 B/P (MAP) 131/76 (94) 138/71 (93) Pulse Ox 94 93 Physical exam O. CONSTITUTIONAL/GEN: NAD, resting in bed EYES: conjunctiva mildly icteric, PERRL, EOMI. ENT: Mouth and pharynx normal. NECK: thyroid midline, carotids symmetrical. LUNGS: clear A-P, respiratory effort is normal. CARDIOVASCULAR: RR without murmur or gallop. No significant edema. GI/ABD: soft and distended with fluid wave present, mild caput?. : no CVA tenderness NEURO: No focal deficits. Gait is normal SKIN: color normal, no rashes noted, spider angiomata on face HEME/LYMPH: no bruising, petechia or significant adenopathy MUSC: back is normal in appearance. Extremities are normal in appearance. PSYCH/MENTAL STATUS: Alert and oriented x 3. Assessment Assessment: (1) Hematemesis (2) Ascites (3) Liver cirrhosis (4) Portal hypertension with esophageal varices (5) Major depressive disorder Assessment At this time patient continues to have nausea/vomiting with dark -- possible bloody vomit this am. Continue diuretics. Add IV PPI. Paracentesis today for therapeutic relief but also to r/o SBP.. Start on Rocephin empirically since patient has an allergy to Levaquin Consult GI for additional recs and possible EGD for portal hTN/varices. Start on octreotide at this time due to bloody emesis this am. Depression -- appears to be stable -- continue home meds Inguinal hernia -- hopefully this pain will lesson after the paracentesis and there is a decrease in intraabdominal pressure. he is not a surgical candidate as long at they are reducible. ETOH abuse -- Cover with CIWA protocol. Patient has no interest in quitting at this time PLAN PLAN Plan as above Patient seen and dw resident team -- Dr. Wolfe, Dr. Cage, Dr. Raheel Melissa,Lianne Whittington MD Jul 11, 2017 11:09
[2017-07-11] MEDS ORDERED: SODIUM CHLORIDE 0.9% FLUSH 10 ML FLUSH IV FLUSH PRN (11:15)
[2017-07-11] MEDS ORDERED: OCTREOTIDE INJ 50 MCG/ML AMP IV PUSH PRN (11:15)
[2017-07-11] MEDS ORDERED: CIPROFLOXACIN 400 MG PREMIX 200 ML IV SCH (11:15)
[2017-07-11] MEDS: buPROPion HCL 100 MG SUSTAINED RELEASE TAB PO SCH ×2 (11:30→21:34)
[2017-07-11] MEDS: MULTIVITAMIN TAB PO SCH (11:30)
[2017-07-11] MEDS: THIAMINE HCL 100 MG TAB PO SCH (11:31)
[2017-07-11] MEDS: FOLIC ACID 1 MG TAB PO SCH (11:32)
[2017-07-11] MEDS: TAMSULOSIN HCL 0.4 MG CAP PO SCH (11:32)
[2017-07-11] MEDS ORDERED: OCTREOTIDE INJ 50 MCG/ML AMP IV PUSH ONE (12:00)
[2017-07-11] MEDS ORDERED: PANTOPRAZOLE SODIUM 40 MG VIAL IV PUSH SCH (12:00)
--- NOTE | 2017-07-11 14:47 | RADRPT ---
EXAM DATE/TIME: 07/11/2017 13:16 [facility] COMPARISON: No previous studies available for comparison. INDICATIONS : Ascites. MEDICAL HISTORY : Benign prostatic hyperplasia, (BPH) Hernia, inguinal. Weakness. Asthma. GERD. Nocturia. Melanoma. Ba mark and squamous cell carcinoma. Psoriasis. ADD. Depression. Anxiety. SURGICAL HISTORY : Septoplasty. Turbinectomy. Eye surgery. Left knee miniscus repair. Melanoma removed from face. ENCOUNTER: Initial ACUITY: 1 day PAIN SCORE: 0/10 LOCATION: Left lower quadrant FLUID: Total volume of 2,100 cc of clear, yellow fluid was removed. Fluid was sent to lab for ordered studies. Post procedure scanning reveals no hematoma or other complication. TECHNIQUE: 1. Ultrasound guidance for abdominal paracentesis. 2. Paracentesis. The risks, benefits, and alternatives to ultrasound guided paracentesis were explained to the patient in detail including the risk of bleeding and infection. Written and verbal informed consent was obt ained. With the patient on the ultrasound table, ultrasound imaging was used to select the most appropriate approach for paracentesis. Overlying skin was prepped and draped in the usual sterile fashion and wi th a local anesthetic, a dermatotomy was made with an 11 blade scalpel. A 6 [place] Bcm-R-[place] ca theter was introduced into the peritoneal cavity and fluid was collected. The patient tolerated the procedure well and left the ultrasound suite in stable condition. CONCLUSION: Uncomplicated ultrasound guided paracentesis. Dheeraj Navas Jr., MD on July 11, 2017 at 14:45 Board Certified Radiologist. This report was verified electronically.
[2017-07-11 14:55] LABS: PERITONEAL HISTIOCYTES 5 %; PERITONEAL LYMPHS 71 %; PERITONEAL MESOTHELIAL 8 %; PERITONEAL MONOS 16 %
[2017-07-11 14:57] LABS: PERITONEAL WBC 119 /MM3 (0-10)
--- NOTE | 2017-07-11 15:42 | PD.CONS ---
HPI History of Present Illness This is a 67 year old male with a past history of alcohol abuse, who presented to the emergency room for generalized malaise. He has never been told in the past that he has liver cirrhosis, but does have a long history of ETOH use, 3 glasses vodka per day and has evidence of liver cirrhosis, portal hypertension, ascites, and splenomegaly noted on CT Scan. He was drinking some johnathan abdi with ice this morning and suddenly became nauseous and then vomited a small amount of dark material. He denies any prior history of GI bleeding or stomach ulcers. He does have GERD and takes omeprazole once a day. He reports that this seems to control his symptoms. He denies any abdominal pain, weight loss, diarrhea, constipation, melena, or hematochezia. He last had an EGD/ Colonoscopy about 10 years ago. He does not recall ever being told that he had varices. CT Scan abdomen and pelvis with iv contrast (07/10/17)---> liver demonstrates features at diagnostic of cirrhosis and possibly coexisting steatosis. No focal liver lesion is identified. There are associated findings related to the chronic liver disease indicating portal hypertension including a recannulized paraumbilical vein, collateral blood vessels, ascites, and splenomegaly. Bilateral inguinal hernias containing fluid and fat. He also has had abdominal swelling lately, but cannot state when this exactly started. He occasionally has swelling his lower extremities, but states this does not happen all the time. He underwent US Guided Paracentesis (07/11/17) 2100cc removed. WBC 119, RBC 79, Cx pending. Cytology pending. (Katya Ramos) PFSH Past Medical History Psoriasis Major depressive disorder BPH Inguinal hernia bilateral Asthma GERD Seasonal allergies Liver cirrhosis Melanoma Past Surgical History Left Meniscus tear repair 2000 Melanoma in-situ removed on left face Bilateral intra-ocular lens replaced EGD/Colonoscopy (Katya Ramos) Coded Allergies: Influenza Virus Vaccines (Unverified Allergy, Intermediate, SKIN REACTION , 07/10/17) levofloxacin (Unverified Allergy, Mild, "WEAKENED TENDONS", 07/10/17) Medications Allergies Coded Allergies Type Severity Reaction Last Updated Verified Influenza Virus Vaccines Allergy Intermediate SKIN REACTION 07/10/17 No levofloxacin Allergy Mild "WEAKENED TENDONS" 07/10/17 No Active Scripts Medications Dose Route/Sig Max Daily Dose Days Date Category Dose Instructions Folic Acid 0.8 Mg Tab 2.5 Mg PO DAILY 07/10/17 Reported Diazepam 10 Mg Tab 10 Mg PO HS PRN 07/10/17 Reported Theophylline ER 12 HR (Theophylline) 300 Mg Tab 300 Mg PO Q12H 07/10/17 Reported Rapaflo (Silodosin) 4 Mg Cap 4 Mg PO DAILY 12/08/16 Reported Omeprazole 20 Mg Tab 20 Mg PO DAILY 12/08/16 Reported Trexall (Methotrexate) 15 Mg Tab 15 Mg PO Q7D 12/08/16 Reported Flovent Hfa 12 GM Inh (Fluticasone Propionate) 110 Mcg/Act Inh 1 Puff INH BID 12/08/16 Reported Flonase Nasal [place] (Fluticasone Nasal [place]) 50 Mcg/Act [place] 50 Mcg EACH NARE DAILY 12/08/16 Reported Dexedrine (Dextroamphetamine Sulfate) 15 Mg Cap 15 Mg PO BID 12/08/16 Reported Wellbutrin SR 12 HR (Bupropion HCl) 100 Mg Tab 100 Mg PO BID 12/08/16 Reported Proair Hfa 8.5 GM Inh (Albuterol Sulfate) 90 Mcg/Act Aer 1 Puff INH Q4H PRN 12/08/16 Reported 108 mcg/actuation Family History No family hx of liver disease or cancer. Social History Alcohol, 3-4 cups of vodka a day for 4 years Tobacco- 3 cigarettes for 20 years Illicit drugs- none (Katya Ramos) Review of Systems Constitutional: COMPLAINS OF: Fatigue, DENIES: Fever, Chills Respiratory: COMPLAINS OF: Cough, DENIES: Shortness of breath Cardiovascular: DENIES: Chest pain Gastrointestinal: COMPLAINS OF: Nausea, Vomiting, Heartburn, Hematemesis ( questionable- dark), DENIES: Abdominal pain, Black stools, Bloody stools, Constipation, Diarrhea Musculoskeletal: DENIES: Joint pain, Back pain Neurologic: DENIES: Headache ROS lethargic, poor historian (Katya Ramos) GI Exam Vitals I&O Vital Signs Date Time Temp Pulse Resp B/P (MAP) Pulse Ox O2 Delivery O2 Flow Rate FiO2 07/11/17 14:20 98.0 121 16 126/71 (89) 90 07/11/17 14:05 97.8 120 16 131/65 (87) 90 07/11/17 13:34 97.9 126 16 131/62 (85) 90 07/11/17 12:15 125 07/11/17 11:17 98.2 116 20 129/70 (89) 94 07/11/17 08:42 123 07/11/17 07:52 98.0 107 18 138/71 (93) 93 07/11/17 04:00 120 07/11/17 03:30 98.0 117 18 131/76 (94) 94 07/11/17 01:34 120 07/10/17 23:46 98.1 18 136/74 (94) 98 07/10/17 19:29 19 99 Room Air 07/10/17 17:15 98.5 118 16 143/71 (95) 97 I/O 07/10/17 07/10/17 07/10/17 07/11/17 07/11/17 07/11/17 07:00 15:00 23:00 07:00 15:00 23:00 Output Total 350 ml Balance -350 ml Output Urine Total 350 ml Imaging Last Impressions Cyst Biopsy Asp-Paracentesis US 07/11/17 0000 Signed Impressions: Service Date/Time: Tuesday, July 11, 2017 13:16 - CONCLUSION: Uncomplicated ultrasound guided paracentesis. Dheeraj Navas Jr., MD Abdomen/Pelvis CT 07/10/17 1844 Signed Impressions: Service Date/Time: Monday, July 10, 2017 19:42 - CONCLUSION: 1. Liver demonstrates features at diagnostic of cirrhosis and possibly coexisting steatosis. No focal liver lesion is identified. There are associated findings related to the chronic liver disease indicating portal hypertension including a recannulized paraumbilical vein, collateral blood vessels, ascites, and splenomegaly. 2. Bilateral inguinal hernias containing fluid and fat. Pal Light MD Laboratory Test 07/10/17 18:40 07/10/17 23:10 07/11/17 07:08 07/11/17 13:45 White Blood Count 6.8 TH/MM3 7.6 TH/MM3 Red Blood Count 3.66 MIL/MM3 3.39 MIL/MM3 Hemoglobin 13.4 GM/DL 13.0 GM/DL Hematocrit 39.4 % 37.3 % Mean Corpuscular Volume 107.6 FL 109.9 FL Mean Corpuscular Hemoglobin 36.7 PG 38.2 PG Mean Corpuscular Hemoglobin Concent 34.1 % 34.7 % Red Cell Distribution Width 16.7 % 17.4 % Platelet Count 102 TH/MM3 103 TH/MM3 Mean Platelet Volume 9.0 FL 8.8 FL Neutrophils (%) (Auto) 67.1 % 57.0 % Lymphocytes (%) (Auto) 22.1 % 29.8 % Monocytes (%) (Auto) 8.4 % 9.8 % Eosinophils (%) (Auto) 1.6 % 2.4 % Basophils (%) (Auto) 0.8 % 1.0 % Neutrophils # (Auto) 4.5 TH/MM3 4.3 TH/MM3 Lymphocytes # (Auto) 1.5 TH/MM3 2.3 TH/MM3 Monocytes # (Auto) 0.6 TH/MM3 0.7 TH/MM3 Eosinophils # (Auto) 0.1 TH/MM3 0.2 TH/MM3 Basophils # (Auto) 0.1 TH/MM3 0.1 TH/MM3 CBC Comment DIFF FINAL DIFF FINAL Differential Comment Prothrombin Time 17.9 SEC 19.6 SEC Prothromb Time International Ratio 1.6 RATIO 1.7 RATIO Activated Partial Thromboplast Time 34.5 SEC 33.6 SEC Blood Urea Nitrogen 8 MG/DL 7 MG/DL Creatinine 0.80 MG/DL 0.74 MG/DL Random Glucose 127 MG/DL 97 MG/DL Total Protein 6.5 GM/DL 6.4 GM/DL Albumin 2.8 GM/DL 2.6 GM/DL Calcium Level 8.4 MG/DL 8.1 MG/DL Alkaline Phosphatase 199 U/L 195 U/L Aspartate Amino Transf (AST/SGOT) 79 U/L 90 U/L Alanine Aminotransferase (ALT/SGPT) 45 U/L 44 U/L Total Bilirubin 5.0 MG/DL 5.3 MG/DL Sodium Level 135 MEQ/L 135 MEQ/L Potassium Level 3.2 MEQ/L 5.1 MEQ/L Chloride Level 101 MEQ/L 102 MEQ/L Carbon Dioxide Level 25.8 MEQ/L 25.1 MEQ/L Anion Gap 8 MEQ/L 8 MEQ/L Estimat Glomerular Filtration Rate 97 ML/MIN 106 ML/MIN Lipase 187 U/L Ammonia 51 MCMOL/L 57 MCMOL/L Lactate Dehydrogenase 508 U/L Hepatitis A IgM Antibody NEGATIVE Hepatitis B Surface Antigen NEGATIVE Hepatitis B Core IgM Antibody NEGATIVE Hepatitis C Antibody NEGATIVE Peritoneal Fluid WBC 119 /MM3 Peritoneal Fluid RBC 79 /MM3 Peritoneal Fluid Lymphocytes 71 % Peritoneal Fluid Monocytes 16 % Peritoneal Fluid Histiocytes 5 % Peritoneal Fluid Mesothelial Cells 8 % Peritoneal Fluid Total Protein 0.5 GM/DL Peritoneal Fluid Albumin 0.2 G/DL Peritoneal Fluid LDH 42 U/L Peritoneal Fluid Glucose 115 MG/DL Date/Time Source Procedure Growth Status 07/11/17 13:45 Fluid Peritoneal Fluid Gram Stain Pending Received 07/11/17 13:45 Fluid Peritoneal Fluid Body Fluid Culture Pending Received Physical Examination HEENT: Normocephalic; atraumatic; no jaundice. CHEST: CTA CARDIAC: Mildly tachycardic, regular ABDOMEN: Soft, nondistended, nontender; hepatosplenomegaly; bowel sounds are present in all four quadrants. Ascites. EXTREMITIES: No clubbing, cyanosis, or edema. SKIN: Normal; no rash; no jaundice. [employer]ENTICE: No focal deficits; Lethargic (Katya Ramos) Assessment and Plan Plan ASSESSMENT: - N/V with questionable hematemesis. Vomiting small amount of dark emesis this am. Pt with hx of liver cirrhosis and ongoing ETOH use. - Ascites, new onset. Pt cannot state when he started having abdominal distention. S/P US Guided Paracentesis (07/11/17) 2100cc removed. WBC 119, RBC 79, Cx pending. Cytology pending. Ceftriaxone. Add Lasix and spironolactone. - Elevated LFTs/Liver cirrhosis/ETOH abuse. CT Scan abdomen and pelvis with iv contrast (07/10/17)---> liver demonstrates features at diagnostic of cirrhosis and possibly coexisting steatosis. No focal liver lesion is identified. There are associated findings related to the chronic liver disease indicating portal hypertension including a recannulized paraumbilical vein, collateral blood vessels, ascites, and splenomegaly. Bilateral inguinal hernias containing fluid and fat. T. Bili 5.3, AST 90, ALT 44, Alk phosph 195. - Hepatic encephalopathy. Ammonia 57. Add Lactulose, Xifaxan. - GERD. Increase PPI to 40mg IV BID - Generalized malaise with hypokalemia, hyponatremia. Improved. - Macrocytosis, MCV 109.9. Likely secondary to ETOH abuse. Will check B12, folate - ETOH abuse. DT precautions. - Psoriasis, Major depressive disorder, BPH, Asthma per attending. PLAN: - Plan for egd with possible band ligation - Obtain consents - NPO after MN - Increase Protonix 40mg IV BID - Add Lasix 20mg po BID - Add Spironolactone 50mg po daily - Add Lactulose 30mL po BID - Add Xifaxan 550mg po BID - Cont. Ceftriaxone - Await cytology from peritoneal fluid - Await C/S from peritoneal fluid - B12, Folate level - CBC, CMP in am - Supportive care - Further recommendations to follow based on results of above - Pt seen and examined by Dr. Vu and myself and this note is written on his behalf (Katya Ramos) Physician Comments Patient seen and examined Agree with above Continue with current supportive care Monitor labs EGD tomorrow (Daniel Vu MD) Katya Ramos Jul 11, 2017 15:42 Daniel Vu MD Jul 11, 2017 23:51
[2017-07-11] MEDS: PANTOPRAZOLE SODIUM 40 MG VIAL IV PUSH SCH (18:26)
[2017-07-11] MEDS: SPIRONOLACTONE 50 MG TAB PO SCH (18:27)
[2017-07-11] MEDS: FUROSEMIDE 40 MG TAB PO SCH (18:27)
[2017-07-11] MEDS: cefTRIAXone INJ 1,000 MG in SODIUM CHLORIDE 0.9% INJ 100 ML IV SCH (18:28)
[2017-07-11] MEDS ORDERED: PHYTONADIONE 10 MG/ML VIAL SQ ONE (20:30)
[2017-07-11 21:26] LABS: REVIEW FLAG FINAL
[2017-07-11] MEDS: SODIUM CHLORIDE 0.9% FLUSH 10 ML FLUSH IV FLUSH SCH (21:34)
[2017-07-11] MEDS: LACTULOSE SYRUP 20 GM/30 ML CUP PO SCH (21:34)
[2017-07-11] MEDS: RIFAXIMIN 550 MG TAB PO SCH (21:35)
[2017-07-11 21:36] LABS: INTERNATIONAL NORMALIZED RATIO 1.8 RATIO; PROTHROMBIN TIME - PATIENT 20.1 SEC (9.8-11.6)
[2017-07-12] VITALS (11 sets, daily range): BP systolic 108–141; BP diastolic 62–76; PULSE 108–117; RESP 16–20; TEMP 97.6–99.1; O2SAT 93–96
[2017-07-12] MEDS: FLUTICASONE PROPIONATE 110 MCG/ACT 12 GM INHALER INH SCH ×2 (00:03→09:00)
[2017-07-12] MEDS ORDERED: CHLORHEXIDINE GLUCONATE 2 % 1 PACK (2 CLOTHS) TOPICAL PRN (05:15)
[2017-07-12] MEDS ORDERED: LACTATED RINGER'S 1000 ML IV PRN (05:15)
[2017-07-12] MEDS ORDERED: POVIDONE IODINE 5% (ANTISEPSIS KIT) 4 APPLICATIONS EACH NARE PRN (05:15)
[2017-07-12] MEDS ORDERED: INSULIN HUMAN REGULAR 1,000 UNITS/10 ML VIAL SQ PRN (05:15)
[2017-07-12] MEDS ORDERED: SODIUM CHLORID 0.9% 500 ML IV PRN (05:15)
[2017-07-12] MEDS ORDERED: METOPROLOL TARTRATE 25 MG TAB PO PRN (05:15)
[2017-07-12] MEDS: PANTOPRAZOLE SODIUM 40 MG VIAL IV PUSH SCH (05:17)
[2017-07-12] MEDS: RIFAXIMIN 550 MG TAB PO SCH (08:01)
[2017-07-12] MEDS: THEOPHYLLINE ER 12 HR 300 MG TABCR PO SCH (08:02)
[2017-07-12] MEDS: DOCUSATE SODIUM 50 MG/SENNA 8.6 MG TAB PO SCH (09:00)
[2017-07-12] MEDS: SODIUM CHLORIDE 0.9% FLUSH 10 ML FLUSH IV FLUSH SCH (09:00)
[2017-07-12] MEDS: THIAMINE HCL 100 MG TAB PO SCH (09:00)
[2017-07-12] MEDS: MULTIVITAMIN TAB PO SCH (09:00)
[2017-07-12] MEDS: TAMSULOSIN HCL 0.4 MG CAP PO SCH (09:00)
[2017-07-12] MEDS: SPIRONOLACTONE 50 MG TAB PO SCH (09:00)
[2017-07-12] MEDS: FLUTICASONE PROPIONATE 50 MCG/ACT 16 GM NASAL SPRAY EACH NARE SCH (09:00)
[2017-07-12] MEDS: FUROSEMIDE 40 MG TAB PO SCH (09:00)
[2017-07-12] MEDS: buPROPion HCL 100 MG SUSTAINED RELEASE TAB PO SCH (09:00)
[2017-07-12] MEDS: FOLIC ACID 1 MG TAB PO SCH (09:00)
[2017-07-12] MEDS: LACTULOSE SYRUP 20 GM/30 ML CUP PO SCH (09:00)
--- NOTE | 2017-07-12 09:55 | PD.PROCEDR ---
GI Procedure REFERRING PHYSICIAN [facility] PROCEDURE PERFORMED EGD with esophageal variceal banding INDICATION FOR PROCEDURE Cirrhosis with esophageal varices seen on CT of the abdomen and hematemesis PROCEDURE: The procedure, risks and benefits were discussed with Mr. Hernández and informed consent was obtained. Anesthesia sedated him with Diprivan. He was placed in the left lateral decubitus position. EGD: The Pentax videoscope was introduced through the oropharynx and advanced to the second portion of the duodenum under direct visualization. Retroflexion was performed in the stomach. FINDINGS: The esophagus there were 3 columns of grade 2 to grade 3 esophageal varices from the mid to distal esophagus 1 column showed that the nipple sign 6 bands were applied on all 3 columns including the nipple the Z line appeared to be irregular the patient had mentioned a history of Uribe's no biopsies were taken today. The stomach there was mild to moderate portal hypertensive gastropathy no gastric varices otherwise unremarkable The duodenum this was normal ESTIMATED BLOOD LOSS: None SPECIMENS REMOVED: None COMPLICATIONS: None IMPRESSION: Esophageal varices Portal gastropathy PLAN: Supportive care Monitor labs Recommend nadolol on discharge Do not place any NG tube EGD in 1 year Daniel Vu MD Jul 12, 2017 09:55
--- NOTE | 2017-07-12 11:48 | HHI.FPPN ---
Subjective Remarks Patient seen and examined at bedside after EGD procedure. Pt complained of RUQ abdominal pain, rates 9/10. No other procedure. Patient was reexamined in the afternoon around 1530 and abdominal pain had resolved. Normal abdominal exam. Tolerating advancement of diet. (Charlie Wolfe MD, R1) Objective Vitals Vital Signs Date Time Temp Pulse Resp B/P (MAP) Pulse Ox O2 Delivery O2 Flow Rate FiO2 07/12/17 10:52 98.0 115 16 136/69 (91) 96 07/12/17 08:23 97.9 117 20 134/76 (95) 96 07/12/17 08:00 117 07/12/17 06:16 114 07/12/17 05:43 98.5 108 16 137/73 93 07/12/17 05:20 97.6 112 16 141/69 93 07/12/17 03:26 98.4 116 18 119/67 (84) 96 07/12/17 01:51 99.1 117 16 115/68 94 07/12/17 01:15 98.5 111 20 108/62 94 07/11/17 23:14 98.2 109 19 126/72 (90) 93 07/11/17 20:10 98.1 112 19 134/68 (90) 94 07/11/17 17:25 98.0 113 18 121/69 (86) 93 07/11/17 14:20 98.0 121 16 126/71 (89) 90 07/11/17 14:05 97.8 120 16 131/65 (87) 90 07/11/17 13:34 97.9 126 16 131/62 (85) 90 07/11/17 12:15 125 I/O 07/11/17 07/11/17 07/11/17 07/12/17 07/12/17 07/12/17 07:00 15:00 23:00 07:00 15:00 23:00 Intake Total 1093 ml 528 ml Output Total 350 ml 200 ml 1200 ml Balance -350 ml -200 ml -107 ml 528 ml Intake Oral 300 ml FFP 293 ml 218 ml Blood Product IV Normal Saline Flush 500 ml 10 ml Other 300 ml Output Urine Total 350 ml 200 ml 1200 ml (Charlie Wolfe MD, R1) Result Diagram: 07/11/17201607/11/17 07 Objective Remarks GENERAL: Patient siting in bed, NAD SKIN: No rashes, ecchymoses or lesions. Cool and dry. HEAD: NC/AT EYES: PERRL. EOMI. No conjunctival injection or drainage. ENT: MMM, OP without erythema, tonsillar swelling, or exudate. NECK: Supple, no lymphadenopathy. No JVD. CARDIOVASCULAR: Normal S1 and S2. NRRR. Normal S1/S2. No MRG RESPIRATORY: CTAB. CTA BL GASTROINTESTINAL: Abdomen distended, tender to palpation on RUQ. Palpable masses. MUSCULOSKELETAL: Extremities without clubbing, cyanosis, or edema. NEUROLOGICAL: Awake and alert. Cranial nerves II through XII grossly intact. Moves all extremities without difficulty. Normal speech. (Charlie Wolfe MD, R1) A/P Assessment and Plan Mr. Hernández is a 67 yo white male with a PMH of alcohol abuse and depression presenting with malaise, decreased po intake and abdominal pain. Admitted for observation. (Charlie Wolfe MD, R1) Attending Attestation Patient seen and examined. Case reviewed and discussed with the resident team. Agree with plan of care as discussed with me and documented in the resident note. (Lianne Melissa MD) Problem List: (1) Liver cirrhosis ICD Codes: K74.60 - Unspecified cirrhosis of liver Status: Acute Plan: CT abdomen/pelvis showed features of cirrhosis. There were also associated findings related to the chronic liver disease indicating portal hypertension including a recannulized paraumbilical vein, collateral blood vessels, ascites, and splenomegaly. Ammonia level elevated at 51. LFTs elevated. INR 1.6. MELD score: 19 points, 6.0% estimated 3-month mortality -S/p therapeutic and diagnostic paracentesis, removal of 2100 cc of clear fluid , studies negative for infection -GI following -EGD procedure done today 07/12. No blood loss during procedure. Six bands applied. -hepatitis panel negative -no leukocytosis, VS WNL during hospitalization, -Latest INR- 1.6 - Patient to be discharged today pending abdominal pain resolves -Pt advised to f/u with pcp as out patient. Repeat EGD in 1 yr. -Pt will be given rx upon discharge: nadolol, spironolactone, lasix, lactulose (2) Abdominal pain ICD Codes: R10.9 - Unspecified abdominal pain Status: Acute Plan: Lower abdominal pain of a few days duration located in the area of bilateral inguinal hernias noted on admission. CT abdomen/pelvis shows they contain fluid and fat. Discomfort may also be due to ascites. CT shows moderate fluid in the abdomen and pelvis. * Oxycodone 5mg po q4h for pain 3-5 * Oxycodone 10mg po q4h for pain 6-10 Current abdominal pain likely due to EGD procedure. Will reassess in the afternoon. VS WNL. (3) Alcohol abuse ICD Codes: F10.10 - Alcohol abuse, uncomplicated Status: Chronic Plan: Pt has been imbibing in alcohol for 4 years. CBC shows macrocytosis. CMP shows AST>ALT. * [facility] protocol * Oral thiamine, B12, and folic acid qD * Advised patient to decrease alcohol intake (4) Nausea & vomiting ICD Codes: R11.2 - Nausea with vomiting, unspecified Status: Resolved Plan: Nausea and vomiting of 4 days duration with decrease in appetite. May be due to alcohol intake vs gastroenteritis vs cirrhosis (5) Major depressive disorder ICD Codes: F32.9 - Major depressive disorder, single episode, unspecified Status: Chronic Plan: Patient sees an outside psychiatrist for treatment. Declined to see a psychiatrist while inpatient. * Bupropion HCl 100mg po BID (6) FEN Status: Acute Plan: Fluids: NS + KCL 20meq @ 42mls/hr Electrolytes: monitor and replete as needed Nutrition: regular basic diet, sodium restriction to 2g DVT Prophylaxis: Early ambulation. bilateral SCDs GI Prophylaxis: none indicated at this time Dispo: home (Charlie Wolfe MD, R1) Problem Qualifiers (1) Liver cirrhosis: Qualified Codes: K70.31 - Alcoholic cirrhosis of liver with ascites (2) Abdominal pain: Qualified Codes: R10.30 - Lower abdominal pain, unspecified (3) Nausea & vomiting: Qualified Codes: R11.2 - Nausea with vomiting, unspecified (4) Major depressive disorder: Charlie Wolfe MD, R1 Jul 12, 2017 11:48 Lianne Melissa MD Jul 13, 2017 12:58
[2017-07-12] MEDS ORDERED: FURO1TAB62 PO (11:55)
[2017-07-12] MEDS ORDERED: SPIR50TA PO (11:55)
--- NOTE | 2017-07-12 11:56 | HHI.DCPOC ---
Discharge Care Plan Diagnosis: (1) Cirrhosis (2) Ascites (3) Portal hypertension (4) Alcohol abuse Goals to Promote Your Health * To prevent worsening of your condition and complications * To maintain your health at the optimal level Directions to Meet Your Goals Take your medications as prescribed Follow your dietary instruction Follow activity as directed Keep your appointments as scheduled Take your immunizations and boosters as scheduled If your symptoms worsen call your PCP, if no PCP go to Urgent Care Center or Emergency Room Smoking is Dangerous to Your Health. Avoid second hand smoke Call the 24-hour hour crisis hotline for domestic abuse at Charlie Wolfe MD, R1 Jul 12, 2017 11:56
[2017-07-12] MEDS ORDERED: LACT10SO PO (11:59)
[2017-07-12] MEDS ORDERED: ONDANSETRON HCL 4 MG/2 ML VIAL IV PUSH ONE (12:00)
[2017-07-12] MEDS ORDERED: LIDOCAINE HCL 1% PF 5 ML AMPULE OTHER ONE (12:00)
[2017-07-12] MEDS ORDERED: PROPOFOL 200 MG/20 ML AMP IV ONE (12:00)
[2017-07-12] MEDS ORDERED: PHENYLEPHRINE HCL 10 MG/ML VIAL IV ONE (12:00)
[2017-07-12] MEDS ORDERED: NADO20TA PO (12:04)
[2017-07-12] MEDS ORDERED: KETOROLAC TROMETHAMINE 30 MG/ML (IVP) VIAL IV PUSH ONE (12:30)
[2017-07-12] MEDS: cefTRIAXone INJ 1,000 MG in SODIUM CHLORIDE 0.9% INJ 100 ML IV SCH (12:43)
[2017-07-12 12:59] LABS: AUTOMATED NEUTROPHIL # 3.5 TH/MM3 (1.8-7.7); BASOPHIL # 0.1 TH/MM3 (0-0.2); BASOPHIL % 0.9 % (0.0-2.0); EOSINOPHIL # 0.1 TH/MM3 (0-0.4); EOSINOPHIL % 1.2 % (0.0-4.0); HEMATOCRIT 34.9 % (39.0-51.0); LYMPH % 26.1 % (9.0-44.0); LYMPHOCYTE # 1.5 TH/MM3 (1.0-4.8); MEAN CELL VOLUME 108.5 FL (80.0-100.0); MEAN CORPUSCULAR HEMOGLOBIN 37.2 PG (27.0-34.0); MEAN CORPUSCULAR HGB CONC 34.3 % (32.0-36.0); MONO % 9.8 % (0.0-8.0); PLATELET COUNT 84 TH/MM3 (150-450); RED BLOOD COUNT 3.22 MIL/MM3 (4.50-5.90); RED CELL DISTRIBUTION WIDTH 16.9 % (11.6-17.2); WHITE BLOOD COUNT 5.6 TH/MM3 (4.0-11.0)
[2017-07-12 13:03] LABS: HEMO FLAGS AUTO DIFF
[2017-07-12 13:19] LABS: APTT (PATIENT) 35.2 SEC (24.3-30.1); INTERNATIONAL NORMALIZED RATIO 1.6 RATIO; PROTHROMBIN TIME - PATIENT 18.1 SEC (9.8-11.6)
[2017-07-12 13:25] LABS: ANION GAP 11 MEQ/L (5-15); AST (GOT) 66 U/L (15-37); BICARBONATE 26.3 MEQ/L (21.0-32.0); BLOOD UREA NITROGEN 10 MG/DL (7-18); CHLORIDE 97 MEQ/L (98-107); GLOMERULAR FILTRATION RATE 97 ML/MIN (>89); SODIUM (NA) 134 MEQ/L (136-145)
[2017-07-12 13:26] LABS: ALT (GPT) 40 U/L (12-78)
[2017-07-12 13:30] LABS: ALKALINE PHOSPHATASE 175 U/L (45-117); TOTAL BILIRUBIN ADULT 4.4 MG/DL (0.2-1.0)
[2017-07-12 13:56] LABS: PLATELET ESTIMATE SMEAR LOW (NORMAL); PLATELET MORPHOLOGY NORMAL (NORMAL); SCAN/DIFF AUTO DIFF CONFIRMED
--- NOTE | 2017-07-12 13:59 | EKG ---
Date Performed: 07/12/2017 Time Performed: 09:23:53 PTAGE: 67 years EKG: SINUS TACHYCARDIA WITH FREQUENT SUPRAVENTRICULAR PREMATURE COMPLEXES NONSPECIFIC T-WAVE ABN ORMALITY ABNORMAL RHYTHM ECG PREVIOUS TRACING : 08/16/2016 10.28 Compared to prior tracing no significant change DOCTOR: Sam Rodriguez Interpretating Date/Time 07/12/2017 13:57:44
[2017-07-12] MEDS ORDERED: ALUMINUM/MAGNESIUM/SIMETH 30 ML CUP PO ONE (14:00)
[2017-07-12] MEDS ORDERED: POTASSIUM CHLORIDE 10 MEQ CONTROLLED RELEASE TAB PO ONE (15:15)
[2017-07-12] MEDS ORDERED: OXYC1CAP PO ×2 (15:30→15:47)
--- NOTE | 2017-07-14 10:08 | HHI.DS ---
Discharge Summary Admission Date Jul 10, 2017 Discharge Date: Jul 12, 2017 Admitting Diagnosis (1) Liver cirrhosis Diagnosis: Principal Plan: CT abdomen/pelvis showed features of cirrhosis. There were also associated findings related to the chronic liver disease indicating portal hypertension including a recannulized paraumbilical vein, collateral blood vessels, ascites, and splenomegaly. Ammonia level elevated at 51. LFTs elevated. INR 1.6. MELD score: 19 points, 6.0% estimated 3-month mortality -S/p therapeutic and diagnostic paracentesis, removal of 2100 cc of clear fluid , studies negative for infection -GI following -EGD procedure done today 07/12. No blood loss during procedure. Six bands applied. -hepatitis panel negative -no leukocytosis, VS WNL during hospitalization, -Latest INR- 1.6 - Patient to be discharged today pending abdominal pain resolves -Pt advised to f/u with pcp as out patient. Repeat EGD in 1 yr. -Pt will be given rx upon discharge: nadolol, spironolactone, lasix, lactulose ICD Codes: K74.60 - Unspecified cirrhosis of liver Status: Acute (2) Abdominal pain Diagnosis: Principal Plan: Lower abdominal pain of a few days duration located in the area of bilateral inguinal hernias noted on admission. CT abdomen/pelvis shows they contain fluid and fat. Discomfort may also be due to ascites. CT shows moderate fluid in the abdomen and pelvis. * Oxycodone 5mg po q4h for pain 3-5 * Oxycodone 10mg po q4h for pain 6-10 Current abdominal pain likely due to EGD procedure. Will reassess in the afternoon. VS WNL. ICD Codes: R10.9 - Unspecified abdominal pain Status: Acute (3) Alcohol abuse Diagnosis: Principal Plan: Pt has been imbibing in alcohol for 4 years. CBC shows macrocytosis. CMP shows AST>ALT. * [facility] protocol * Oral thiamine, B12, and folic acid qD * Advised patient to decrease alcohol intake ICD Codes: F10.10 - Alcohol abuse, uncomplicated Status: Chronic (4) Nausea & vomiting Plan: Nausea and vomiting of 4 days duration with decrease in appetite. May be due to alcohol intake vs gastroenteritis vs cirrhosis ICD Codes: R11.2 - Nausea with vomiting, unspecified Status: Resolved (5) Major depressive disorder Plan: Patient sees an outside psychiatrist for treatment. Declined to see a psychiatrist while inpatient. * Bupropion HCl 100mg po BID ICD Codes: F32.9 - Major depressive disorder, single episode, unspecified Status: Chronic Consultants GI- Dr. Vu Procedures -U/S guided abdominal paracentesis done by IR on 07/11 -EGD done on 07/12 Brief History Mr. Hernández is a 67-year-old white male with past medical history of alcohol abuse and depression presenting to the ED stating that he "hadn't been feeling well" for the past few days. He states that he lost his appetite 4 days ago. He also has been feeling some discomfort around his abdomen. He describes it as a 6 out of 10 jolt-like pain in his lower abdomen where his bilateral inguinal hernias are, that shoots around his lower abdomen. Worse with coughing and movement. He usually plays tennis regularly. However with his last session that he played last week he felt that the torque caused discomfort. Nothing makes the pain/discomfort better. He has also noticed that his abdomen has been expanding. He noticed that he has diastasis recti beginning a year and a half ago. He is currently being seen by his doctor for the bilateral inguinal hernias. He states that they are reducible, but he noticed that they have gotten larger over the past few days. He has had a nonproductive cough that started 2 days ago. He states that it is "reflex stimulated." He has been having nausea and vomiting. He states that he usually has no trouble swallowing 3 pills, but he now has trouble swallowing 1 pill. After this he vomits immediately. He has tried to drink Coke and water and eat [place] ice. However, nothing much is staying down. Sometimes there is no inciting event that causes the vomiting. He is vomited several times today. Nonbloody, nonbilious. No fevers or chills, no chest pain, no shortness of breath. No easy bleeding or bruising. He has been drinking 3-4 small cups of vodka daily for 4 years. This started when his passed in 2012. He felt that drinking now and the pain from her . He has been seeing a psychiatrist regularly. His last appointment was last month. No SI/HI. CBC/BMP: 07/12/17 1250 07/12/17 1250 Significant Findings Laboratory Tests Test 07/11/17 13:45 07/11/17 20:17 07/12/17 12:50 Peritoneal Fluid WBC 119 /MM3 (0-10) Peritoneal Fluid RBC 79 /MM3 (0-0) Hemoglobin 12.5 GM/DL (13.0-17.0) 12.0 GM/DL (13.0-17.0) Hematocrit 37.0 % (39.0-51.0) 34.9 % (39.0-51.0) Prothrombin Time 20.1 SEC (9.8-11.6) 18.1 SEC (9.8-11.6) Activated Partial Thromboplast Time 36.0 SEC (24.3-30.1) 35.2 SEC (24.3-30.1) Vitamin B12 Level GREATER THAN 2000 PG/ML Folate GREATER THAN 20.0 NG/ML Red Blood Count 3.22 MIL/MM3 (4.50-5.90) Mean Corpuscular Volume 108.5 FL (80.0-100.0) Mean Corpuscular Hemoglobin 37.2 PG (27.0-34.0) Platelet Count 84 TH/MM3 (150-450) Monocytes (%) (Auto) 9.8 % (0.0-8.0) Platelet Estimate LOW (NORMAL) Albumin 2.7 GM/DL (3.4-5.0) Calcium Level 8.2 MG/DL (8.5-10.1) Alkaline Phosphatase 175 U/L (45-117) Aspartate Amino Transf (AST/SGOT) 66 U/L (15-37) Total Bilirubin 4.4 MG/DL (0.2-1.0) Sodium Level 134 MEQ/L (136-145) Potassium Level 3.0 MEQ/L (3.5-5.1) Chloride Level 97 MEQ/L (98-107) Ammonia 34 MCMOL/L (11-32) Imaging Last Impressions Cyst Biopsy Asp-Paracentesis US 07/11/17 0000 Signed Impressions: Service Date/Time: Tuesday, July 11, 2017 13:16 - CONCLUSION: Uncomplicated ultrasound guided paracentesis. Dheeraj Navas Jr., MD Abdomen/Pelvis CT 07/10/17 1844 Signed Impressions: Service Date/Time: Monday, July 10, 2017 19:42 - CONCLUSION: 1. Liver demonstrates features at diagnostic of cirrhosis and possibly coexisting steatosis. No focal liver lesion is identified. There are associated findings related to the chronic liver disease indicating portal hypertension including a recannulized paraumbilical vein, collateral blood vessels, ascites, and splenomegaly. 2. Bilateral inguinal hernias containing fluid and fat. Pal Light MD PE at Discharge GENERAL: Patient siting in bed, NAD SKIN: No rashes, ecchymoses or lesions. Cool and dry. HEAD: NC/AT EYES: PERRL. EOMI. No conjunctival injection or drainage. ENT: MMM, OP without erythema, tonsillar swelling, or exudate. NECK: Supple, no lymphadenopathy. No JVD. CARDIOVASCULAR: Normal S1 and S2. NRRR. Normal S1/S2. No MRG RESPIRATORY: CTAB. CTA BL GASTROINTESTINAL: Abdomen distended, tender to palpation on RUQ. Palpable masses. MUSCULOSKELETAL: Extremities without clubbing, cyanosis, or edema. NEUROLOGICAL: Awake and alert. Cranial nerves II through XII grossly intact. Moves all extremities without difficulty. Normal speech. Hospital Course Mr. Velasquez is a 67-year-old Male with PMHx of Pt Condition on Discharge: Stable Discharge Disposition: Discharge Home Discharge Instructions DIET: Follow Instructions for: As Tolerated, No Restrictions Activities you can perform: Regular-No Restrictions Follow up Referrals: PCP Follow-up - 1 Week with Terrance Kitchen Jr, Md New Medications: Furosemide (Lasix) 20 Mg Tab 20 MG PO DAILY, #30 TAB 0 Refills Lactulose Liq (Lactulose Liq) 10 Gm/15 Ml Soln 30 ML PO Q8HR, #1 BOTTLE 1 Refill Nadolol (Nadolol) 20 Mg Tab 20 MG PO DAILY, #30 TAB 0 Refills Oxycodone (Oxycodone) 5 Mg Cap 5 MG PO Q6H PRN for PAIN, #10 CAP 0 Refills . Spironolactone (Spironolactone) 50 Mg Tab 50 MG PO DAILY, #30 TAB 0 Refills Continued Medications: Albuterol 8.5 GM Inh (Proair Hfa 8.5 GM Inh) 90 Mcg/Act Aer 1 PUFF INH Q4H PRN for SHORTNESS OF BREATH, #1 INHALER 0 Refills 108 mcg/actuation Bupropion HCl ER 12 HR (Wellbutrin SR 12 HR) 100 Mg Tab 100 MG PO BID for Control Depression, TAB 0 Refills Dextroamphetamine (Dexedrine) 15 Mg Cap 15 MG PO BID, #30 CAP 0 Refills Diazepam (Diazepam) 10 Mg Tab 10 MG PO HS PRN for MILD ANXIETY, TAB 0 Refills Fluticasone 12 GM Inh (Flovent Hfa 12 GM Inh) 110 Mcg/Act Inh 1 PUFF INH BID for Asthma Management, #1 INHALER 0 Refills Fluticasone Nasal [place] (Flonase Nasal [place]) 50 Mcg/Act [place] 50 MCG EACH NARE DAILY for Allergies, #1 BOTTLE 0 Refills Folic Acid (Folic Acid) 0.8 Mg Tab 2.5 MG PO DAILY for Nutritional Supplement, TAB 0 Refills Methotrexate (Trexall) 15 Mg Tab 15 MG PO Q7D, TAB 0 Refills Omeprazole (Omeprazole) 20 Mg Tab 20 MG PO DAILY, #30 TAB 0 Refills Silodosin (Rapaflo) 4 Mg Cap 4 MG PO DAILY for Manage Prostate Problems, #30 CAP 0 Refills Theophylline ER 12 HR (Theophylline ER 12 HR) 300 Mg Tab 300 MG PO Q12H, #60 TAB 0 Refills Charlie Wolfe MD, R1 Jul 14, 2017 10:08
== END 2017-07-12 17:22 | disposition home or self-care (01) | DRG 432 ==
LOC: NEPE 17:12 → NEDA 21:15 → NEPGCP 23:41 → OBSVTOIN 07-11 11:10
PROVIDERS: ADMIT Family Medicine; ATTEND Family Medicine
PROC: 0W9G3ZX Drainage of Peritoneal Cavity, Percutaneous Approach, Diagnostic (ICD-10-PCS; principal; 2017-07-11)
PROC: 06L38CZ Occlusion of Esophageal Vein with Extraluminal Device, Via Natural or Artificial Opening Endoscopic (ICD-10-PCS; 2017-07-12)
DX: K74.60 Unspecified cirrhosis of liver (principal); I85.11 Secondary esophageal varices with bleeding; K92.0 Hematemesis; R18.8 Other ascites; K76.6 Portal hypertension; N13.8 Other obstructive and reflux uropathy; E87.1 Hypo-osmolality and hyponatremia; R16.1 Splenomegaly, not elsewhere classified; K72.90 Hepatic failure, unspecified without coma; K40.20 Bilateral inguinal hernia, without obstruction or gangrene, not specified as recurrent; F10.10 Alcohol abuse, uncomplicated; F32.9 Major depressive disorder, single episode, unspecified; J45.909 Unspecified asthma, uncomplicated; E87.6 Hypokalemia; K21.9 Gastro-esophageal reflux disease without esophagitis; N40.1 Benign prostatic hyperplasia with lower urinary tract symptoms; K31.89 Other diseases of stomach and duodenum; Z72.0 Tobacco use; L40.9 Psoriasis, unspecified; Z85.820 Personal history of malignant melanoma of skin
CPT/HCPCS: 36430; 49083; 74177; 80053; 80074; 82042; 82140; 82150; 82607; 82746; 82945; 83615; 83690; 84157; 85014; 85018; 85025; 85610; 85730; 86850; 86900; 86901; 86920; 86927; 87070; 87205; 89051; 93005; 96361; 96365; C1729; C9113; G0378; J0696; J1885; J2060; J2354; J2370; J2405; J3430; J3480; J7030; P9017; Q9967

== ENCOUNTER 2017-08-11 04:31 | Emergency (ER) | payer MEDICARE, OTHER ==
[~2017-08-11] VITALS: Ht 177.8 cm; Wt 72.0 kg
[~2017-08-11 04:31] MED LIST changes: +DIAZ10TA PO; +FOLI800T PO; +FURO1TAB62 PO; +LACT10SO PO; -MECL-62 PO; +NADO20TA PO; +OXYC1CAP PO; +SPIR50TA PO; +THEO300T12 PO; -THEO300T4 PO
[2017-08-11] MEDS ORDERED: IOHEXOL 350 MG/ML 10 ML VIAL (for RAD DIAG) IVCONTRAST ONE (04:32)
[2017-08-11 04:35] VITALS: BP 151/78; PULSE 123; RESP 15; TEMP 97.9; O2SAT 99
[2017-08-11] MEDS ORDERED: SODIUM CHLORIDE 0.9% FLUSH 10 ML FLUSH IV FLUSH PRN (05:00)
--- NOTE | 2017-08-11 05:06 | PD ---
HPI Chief Complaint: Abdominal Pain Time Seen by Provider: 04:47 Travel History International Travel<30 days: No Contact w/Intl Traveler<30days: No Traveled to known affect area: No History of Present Illness HPI Patient 67-year-old male presents emergency department for evaluation of nausea vomiting epigastric pain for the past 2-3 days. Patient states that he had esophageal banding recently, has a history of cirrhosis. He states he had 2 episodes of emesis prior to arrival both of which were nonbloody and no coffee- ground emesis. Denies any diarrhea denies any blood in the stool. States epigastric pain is mild, cramping, no radiation, associated signs symptoms as above, context as above. PFSH Past Medical History ADD: Yes Asthma: Yes Anxiety: Yes Depression: Yes Cancer: Yes (skin) Cardiovascular Problems: No Chemotherapy: No Diminished Hearing: No Endocrine: No Gastrointestinal Disorders: Yes (diastasis of abdominal muscles) GERD: Yes Genitourinary: Yes (BPH) Hiatal Hernia: Yes Immune Disorder: Yes (psoriasis) Inguinal Hernia: Yes (bilateral) Medical other: Yes (cirrosis) Musculoskeletal: No Neurologic: No Psychiatric: Yes Reproductive: No Respiratory: Yes Radiation Therapy: No Past Surgical History Eye Surgery: Yes (bilat cataract) Other Surgery: Yes (MELENOMA REMOVED FROM FACE) Social History Alcohol Use: No (hx of) Tobacco Use: Yes (3x per week) Substance Use: No Allergies-Medications (Allergen,Severity, Reaction): Coded Allergies: Influenza Virus Vaccines (Unverified Allergy, Intermediate, SKIN REACTION , 08/11/17) levofloxacin (Unverified Allergy, Mild, "WEAKENED TENDONS", 08/11/17) Reported Meds & Prescriptions Reported Meds & Active Scripts Active Oxycodone (Oxycodone HCl) 5 Mg Cap 5 Mg PO Q6H PRN . Nadolol 20 Mg Tab 20 Mg PO DAILY Lactulose Liq (Lactulose) 10 Gm/15 Ml Soln 30 Ml PO Q8HR Lasix (Furosemide) 20 Mg Tab 20 Mg PO DAILY Spironolactone 50 Mg Tab 50 Mg PO DAILY Reported Folic Acid 0.8 Mg Tab 2.5 Mg PO DAILY Diazepam 10 Mg Tab 10 Mg PO HS PRN Theophylline ER 12 HR (Theophylline) 300 Mg Tab 300 Mg PO Q12H Rapaflo (Silodosin) 4 Mg Cap 4 Mg PO DAILY Omeprazole 20 Mg Tab 20 Mg PO DAILY Trexall (Methotrexate) 15 Mg Tab 15 Mg PO Q7D Flovent Hfa 12 GM Inh (Fluticasone Propionate) 110 Mcg/Act Inh 1 Puff INH BID Flonase Nasal [place] (Fluticasone Nasal [place]) 50 Mcg/Act [place] 50 Mcg EACH NARE DAILY Dexedrine (Dextroamphetamine Sulfate) 15 Mg Cap 15 Mg PO BID Wellbutrin SR 12 HR (Bupropion HCl) 100 Mg Tab 100 Mg PO BID Proair Hfa 8.5 GM Inh (Albuterol Sulfate) 90 Mcg/Act Aer 1 Puff INH Q4H PRN 108 mcg/actuation Review of Systems Except as stated in HPI: all other systems reviewed are Neg Physical Exam Narrative GENERAL: Well-developed well-nourished no obvious distress SKIN: Focused skin assessment warm/dry. HEAD: Atraumatic. Normocephalic. EYES: Pupils equal and round. No scleral icterus. No injection or drainage. ENT: No nasal bleeding or discharge. Mucous membranes pink and moist. NECK: Trachea midline. No JVD. CARDIOVASCULAR: Regular rate and rhythm. No murmur appreciated. RESPIRATORY: No accessory muscle use. Clear to auscultation. Breath sounds equal bilaterally. GASTROINTESTINAL: Abdomen soft, non-tender, minimally distended with positive fluid wave. Hepatic and splenic margins not palpable. No guarding no rebound no percussive tenderness. MUSCULOSKELETAL: No obvious deformities. No clubbing. No cyanosis. 1+ pitting edema to bilateral lower extremities. NEUROLOGICAL: Awake and alert. No obvious cranial nerve deficits. Motor grossly within normal limits. Normal speech. PSYCHIATRIC: Appropriate mood and affect; insight and judgment normal. Data Data Last Documented VS Vital Signs Date Time Temp Pulse Resp B/P (MAP) Pulse Ox O2 Delivery O2 Flow Rate FiO2 08/11/17 05:10 98.4 112 22 140/77 (98) 99 Room Air Orders Orders Complete Blood Count With Diff (08/11/17 04:47) Comprehensive Metabolic Panel (08/11/17 04:47) Lipase (08/11/17 04:47) Prothrombin Time / Inr (Pt) (08/11/17 04:47) Act Partial Throm Time (Ptt) (08/11/17 04:47) Urinalysis - C+S If Indicated (08/11/17 04:47) Iv Access Insert/Monitor (08/11/17 04:47) Ecg Monitoring (08/11/17 04:47) Oximetry (08/11/17 04:47) Sodium Chloride 0.9% Flush (Ns Flush) (08/11/17 05:00) Electrocardiogram (08/11/17 ) Troponin I (08/11/17 05:00) Ct Abd/Pel W Iv Contrast(Rout) (08/11/17 ) Oral Contrast - Adult (08/11/17 05:31) Ondansetron Inj (Zofran Inj) (08/11/17 06:30) Labs Laboratory Tests Test 08/11/17 05:00 08/11/17 06:47 White Blood Count 7.9 TH/MM3 Red Blood Count 3.47 MIL/MM3 Hemoglobin 12.9 GM/DL Hematocrit 36.9 % Mean Corpuscular Volume 106.6 FL Mean Corpuscular Hemoglobin 37.3 PG Mean Corpuscular Hemoglobin Concent 35.0 % Red Cell Distribution Width 14.8 % Platelet Count 238 TH/MM3 Mean Platelet Volume 8.6 FL Neutrophils (%) (Auto) 58.4 % Lymphocytes (%) (Auto) 29.3 % Monocytes (%) (Auto) 7.5 % Eosinophils (%) (Auto) 3.6 % Basophils (%) (Auto) 1.2 % Neutrophils # (Auto) 4.6 TH/MM3 Lymphocytes # (Auto) 2.3 TH/MM3 Monocytes # (Auto) 0.6 TH/MM3 Eosinophils # (Auto) 0.3 TH/MM3 Basophils # (Auto) 0.1 TH/MM3 CBC Comment DIFF FINAL Differential Comment Prothrombin Time 17.5 SEC Prothromb Time International Ratio 1.7 RATIO Activated Partial Thromboplast Time 35.0 SEC Blood Urea Nitrogen 8 MG/DL Creatinine 0.96 MG/DL Random Glucose 102 MG/DL Total Protein 7.3 GM/DL Albumin 2.9 GM/DL Calcium Level 9.2 MG/DL Alkaline Phosphatase 171 U/L Aspartate Amino Transf (AST/SGOT) 85 U/L Alanine Aminotransferase (ALT/SGPT) 42 U/L Total Bilirubin 3.4 MG/DL Sodium Level 134 MEQ/L Potassium Level 3.6 MEQ/L Chloride Level 101 MEQ/L Carbon Dioxide Level 24.0 MEQ/L Anion Gap 9 MEQ/L Estimat Glomerular Filtration Rate 79 ML/MIN Troponin I LESS THAN 0.02 NG/ML Lipase 191 U/L MDM Medical Decision Making Medical Screen Exam Complete: Yes Emergency Medical Condition: Yes Interpretation(s) EKG shows sinus tachycardia rate of 109, PACs, borderline left axis deviation normal R-wave progression. No concerning ST segment changes. This abnormal EKG. Differential Diagnosis Life-threatening GI bleeding unlikely, spontaneous bacterial peritonitis unlikely, pancreatitis, abdominal pain, Narrative Course Patient roomed in emergency department, labs are reassuring, hemoglobin 12. He appears well and in no obvious distress and his abdomen is fairly benign with a history of chronic ascites and has been drained before. Patient has CT scan pending at change of shift, will be discussed with the oncoming provider follow- up CAT scan and disposition the patient properly. Condition: Stable Bassam Randolph MD Aug 11, 2017 05:06
[2017-08-11 05:10] VITALS: BP 140/77; PULSE 112; RESP 22; TEMP 98.4; O2SAT 99
[2017-08-11 05:17] LABS: AUTOMATED NEUTROPHIL # 4.6 TH/MM3 (1.8-7.7); BASOPHIL # 0.1 TH/MM3 (0-0.2); BASOPHIL % 1.2 % (0.0-2.0); EOSINOPHIL # 0.3 TH/MM3 (0-0.4); EOSINOPHIL % 3.6 % (0.0-4.0); HEMATOCRIT 36.9 % (39.0-51.0); HEMOGLOBIN 12.9 GM/DL (13.0-17.0); LYMPH % 29.3 % (9.0-44.0); LYMPHOCYTE # 2.3 TH/MM3 (1.0-4.8); MEAN CELL VOLUME 106.6 FL (80.0-100.0); MEAN CORPUSCULAR HEMOGLOBIN 37.3 PG (27.0-34.0); MEAN PLATELET VOLUME 8.6 FL (7.0-11.0); MONO % 7.5 % (0.0-8.0); MONOCYTE # 0.6 TH/MM3 (0-0.9); NEUT % 58.4 % (16.0-70.0); PLATELET COUNT 238 TH/MM3 (150-450); RED BLOOD COUNT 3.47 MIL/MM3 (4.50-5.90); RED CELL DISTRIBUTION WIDTH 14.8 % (11.6-17.2); WHITE BLOOD COUNT 7.9 TH/MM3 (4.0-11.0)
[2017-08-11 05:36] LABS: INTERNATIONAL NORMALIZED RATIO 1.7 RATIO; PROTHROMBIN TIME - PATIENT 17.5 SEC (9.8-11.6)
[2017-08-11 05:46] LABS: ALKALINE PHOSPHATASE 171 U/L (45-117); ALT (GPT) 42 U/L (12-78); TOTAL BILIRUBIN ADULT 3.4 MG/DL (0.2-1.0); TOTAL PROTEIN 7.3 GM/DL (6.4-8.2); TROPONIN I LESS THAN 0.02 NG/ML (0.02-0.05)
[2017-08-11 05:47] LABS: ALBUMIN 2.9 GM/DL (3.4-5.0); AST (GOT) 85 U/L (15-37); BLOOD UREA NITROGEN 8 MG/DL (7-18); CALCIUM 9.2 MG/DL (8.5-10.1); CHLORIDE 101 MEQ/L (98-107); CREATININE 0.96 MG/DL (0.60-1.30); GLOMERULAR FILTRATION RATE 79 ML/MIN (>89); GLUCOSE,RANDOM 102 MG/DL (74-106); LIPASE 191 U/L (73-393); SODIUM (NA) 134 MEQ/L (136-145)
[2017-08-11] MEDS ORDERED: ONDANSETRON HCL 4 MG/2 ML VIAL IV PUSH ONE ×2 (06:30→09:15)
[2017-08-11 06:59] LABS: BACTERIA, URINE OCC /hpf; BLOOD, URINE NEG (NEG); GLUCOSE,URINE NEG (NEG); HYALINE CAST, URINE 1 /lpf (RARE); KETONE, URINE TRACE mg/dL (NEG); MUCUS URINE MANY /lpf (OCC); NITRITE,URINE NEG (NEG); SQUAMOUS EPITHELIAL CELL URINE <1 /hpf (0-5); URINE LEUKOCYTE ESTERASE NEG (NEG)
[2017-08-11 07:25] LABS: BILIRUBIN, URINE NEG (NEG); URINE COLOR AMBER (YELLW/STRAW)
--- NOTE | 2017-08-11 11:02 | RADRPT ---
EXAM DATE/TIME: 08/11/2017 10:32 [facility] COMPARISON: CT ABDOMEN & PELVIS W CONTRAST, July 10, 2017, 19:42. INDICATIONS : Nausea and vomiting. IV CONTRAST: 70 cc Omnipaque 350 (iohexol) IV ORAL CONTRAST: No oral contrast ingested. RADIATION DOSE: 8.13 CTDIvol (mGy) MEDICAL HISTORY : Hernia, hiatal. Hernia, inguinal. Gastroesophageal reflux disease.Diastasis of abdominal muscles. SURGICAL HISTORY : Colon resection. ENCOUNTER: Initial ACUITY: 1 day PAIN SCALE: 0/10 LOCATION: upper quadrant TECHNIQUE: Volumetric scanning of the abdomen and pelvis was performed. Using automated exposure control and ad justment of the mA and/or kV according to patient size, radiation dose was kept as low as reasonably achievable to obtain optimal diagnostic quality images. DICOM format image data is available electro nically for review and comparison. FINDINGS: LOWER LUNGS: The visualized lower lungs are clear. Nodular enhancement is identified in the distal esophagus. LIVER: Liver appears slightly heterogeneous. There are no focal space-occupying lesions or evidence of bilia ry duct dilatation. Portal vein is patent. Gallbladder is distended and small calcified stones are id entified. Moderate amount of free fluid is identified surrounding the liver. SPLEEN: Mildly enlarged. PANCREAS: Within normal limits. KIDNEYS: Normal in size and shape. There is no mass, stone or hydronephrosis. ADRENAL GLANDS: Within normal limits. VASCULAR: There is no aortic aneurysm. BOWEL/MESENTERY: The stomach, small bowel, and colon demonstrate no acute abnormality. There is no free intraperitone al air. Moderate amount of ascites is identified. ABDOMINAL WALL: Within normal limits. RETROPERITONEUM: There is no lymphadenopathy. BLADDER: No wall thickening or mass. REPRODUCTIVE: Within normal limits. INGUINAL: Bilateral inguinal hernias containing fluid and fat are noted. MUSCULOSKELETAL: Within normal limits for patient age. CONCLUSION: 1. Chronic parenchymal liver disease characteristic of cirrhosis. 2. Nodular thickening of the distal esophagus characteristic of varicosities. 3. Mild splenomegaly and moderate ascites. 4. Distended gallbladder with small gallstones. 5. Fluid-filled bilateral inguinal hernias. Reese Macias MD on August 11, 2017 at 10:52 Board Certified Radiologist. This report was verified electronically.
[2017-08-11] MEDS ORDERED: ZOFR4TAB3 SL (11:08)
--- NOTE | 2017-08-11 11:09 | PD ---
Physical Exam Date Seen by Provider: Aug 11, 2017 Time Seen by Provider: 11:06 Narrative 67-year-old male came to the emergency room with history of abdominal pain. He was seen by the previous ER physician. Please refer to his history and physical for further details. Case was signed out to me to follow-up on the CAT scan result. The CAT scan was ordered with by mouth contrast and the result is finally back. Patient has history of alcoholic cirrhosis and varices. Besides those findings the radiologist also read a distended gallbladder with multiple stones. However there is no signs of acute cholecystitis. I will give him a dose of pain medication and discharge him home. I'll ask him to follow up with general surgery regarding his gallbladder. Data Data Last Documented VS Orders Orders Complete Blood Count With Diff (08/11/17 04:47) Comprehensive Metabolic Panel (08/11/17 04:47) Lipase (08/11/17 04:47) Prothrombin Time / Inr (Pt) (08/11/17 04:47) Act Partial Throm Time (Ptt) (08/11/17 04:47) Urinalysis - C+S If Indicated (08/11/17 04:47) Iv Access Insert/Monitor (08/11/17 04:47) Ecg Monitoring (08/11/17 04:47) Oximetry (08/11/17 04:47) Sodium Chloride 0.9% Flush (Ns Flush) (08/11/17 05:00) Electrocardiogram (08/11/17 ) Troponin I (08/11/17 05:00) Ct Abd/Pel W Iv Contrast(Rout) (08/11/17 ) Oral Contrast - Adult (08/11/17 05:31) Ondansetron Inj (Zofran Inj) (08/11/17 06:30) Ondansetron Inj (Zofran Inj) (08/11/17 09:15) Randall-Gastric Tube Insert/Mon (08/11/17 09:11) Iohexol 350 Inj (Omnipaque 350 Inj) (08/11/17 04:32) Morphine Inj (Morphine Inj) (08/11/17 11:15) Ed Discharge Order (08/11/17 11:09) Labs Laboratory Tests Test 08/11/17 05:00 08/11/17 06:47 White Blood Count 7.9 TH/MM3 Red Blood Count 3.47 MIL/MM3 Hemoglobin 12.9 GM/DL Hematocrit 36.9 % Mean Corpuscular Volume 106.6 FL Mean Corpuscular Hemoglobin 37.3 PG Mean Corpuscular Hemoglobin Concent 35.0 % Red Cell Distribution Width 14.8 % Platelet Count 238 TH/MM3 Mean Platelet Volume 8.6 FL Neutrophils (%) (Auto) 58.4 % Lymphocytes (%) (Auto) 29.3 % Monocytes (%) (Auto) 7.5 % Eosinophils (%) (Auto) 3.6 % Basophils (%) (Auto) 1.2 % Neutrophils # (Auto) 4.6 TH/MM3 Lymphocytes # (Auto) 2.3 TH/MM3 Monocytes # (Auto) 0.6 TH/MM3 Eosinophils # (Auto) 0.3 TH/MM3 Basophils # (Auto) 0.1 TH/MM3 CBC Comment DIFF FINAL Differential Comment Prothrombin Time 17.5 SEC Prothromb Time International Ratio 1.7 RATIO Activated Partial Thromboplast Time 35.0 SEC Blood Urea Nitrogen 8 MG/DL Creatinine 0.96 MG/DL Random Glucose 102 MG/DL Total Protein 7.3 GM/DL Albumin 2.9 GM/DL Calcium Level 9.2 MG/DL Alkaline Phosphatase 171 U/L Aspartate Amino Transf (AST/SGOT) 85 U/L Alanine Aminotransferase (ALT/SGPT) 42 U/L Total Bilirubin 3.4 MG/DL Sodium Level 134 MEQ/L Potassium Level 3.6 MEQ/L Chloride Level 101 MEQ/L Carbon Dioxide Level 24.0 MEQ/L Anion Gap 9 MEQ/L Estimat Glomerular Filtration Rate 79 ML/MIN Troponin I LESS THAN 0.02 NG/ML Lipase 191 U/L Urine Color MIGUE Urine Turbidity HAZY Urine pH 6.0 Urine Specific [place] 1.025 Urine Protein 30 mg/dL Urine Glucose (UA) NEG mg/dL Urine Ketones TRACE mg/dL Urine Occult Blood NEG Urine Nitrite NEG Urine Bilirubin NEG Urine Urobilinogen 4.0 MG/DL Urine Leukocyte Esterase NEG Urine RBC LESS THAN 1 /hpf Urine WBC 2 /hpf Urine Squamous Epithelial Cells <1 /hpf Urine Bacteria OCC /hpf Urine Hyaline Casts 1 /lpf Urine Mucus MANY /lpf Microscopic Urinalysis Comment CULT NOT INDICATED MDM Supervised Visit with KRYSTLE: No Diagnosis Primary Impression: Abdominal pain Qualified Codes: R10.12 - Left upper quadrant pain Additional Impressions: Alcoholic cirrhosis Qualified Codes: K70.31 - Alcoholic cirrhosis of liver with ascites Biliary colic Referrals: Onel Kerr MD 1 week Additional Instruction: Please return to the ER if condition worsens or any other new concerns. Otherwise follow-up with the general surgeon whose name and number been given to you. He should not be drinking alcohol given your liver condition. Return to the ER if condition worsens or any other new concerns. He should be eating food that is less and fat content. Med/Other Pt SpecificInfo: Prescription(s) given Scripts Ondansetron Odt (Zofran Odt) 4 Mg Tab 4 MG SL Q6HR Y for Nausea/Vomiting, #10 TAB 0 Refills Prov: Niranjan Díaz MD 08/11/17 Disposition: 01 DISCHARGE HOME Condition: Stable Niranjan Díaz MD Aug 11, 2017 11:09
[2017-08-11] MEDS ORDERED: MORPHINE SULFATE 4 MG/ML INJ IV PUSH ONE (11:15)
[2017-08-11 11:35] VITALS: BP 138/75; PULSE 110; RESP 21; O2SAT 99
--- NOTE | 2017-08-11 16:24 | EKG ---
Date Performed: 08/11/2017 Time Performed: 05:19:01 PTAGE: 67 years EKG: SINUS TACHYCARDIA WITH occassional supraventricular complexes ABNORMAL RHYTHM ECG PREVIOUS TRACING : 07/12/2017 09.23 Since the prior tracing, there has been no significant seri al change. DOCTOR: Nella Campa Interpretating Date/Time 08/11/2017 16:23:21
== END 2017-08-11 11:58 | disposition home or self-care (01) ==
LOC: NEPE 04:31
DX: K70.31 Alcoholic cirrhosis of liver with ascites (principal); R10.13 Epigastric pain; K21.9 Gastro-esophageal reflux disease without esophagitis; F32.9 Major depressive disorder, single episode, unspecified; J45.909 Unspecified asthma, uncomplicated; N40.0 Benign prostatic hyperplasia without lower urinary tract symptoms; F17.200 Nicotine dependence, unspecified, uncomplicated
CPT/HCPCS: 74177; 80053; 81001; 83690; 84484; 85025; 85610; 85730; 93005; 96374; 96375; 96376; 99285; J2270; J2405; Q9967

== ENCOUNTER 2017-08-15 10:35 | Day surgery (SDC) | payer MEDICARE, OTHER ==
[~2017-08-15 10:35] MED LIST changes: +ZOFR4TAB3 SL
[2017-08-15 11:10] VITALS: BP 104/55; PULSE 102; RESP 16; TEMP 97.2; O2SAT 92
--- NOTE | 2017-08-15 12:18 | RADRPT ---
EXAM DATE/TIME: 08/15/2017 11:18 [facility] COMPARISON: No previous studies available for comparison. EXTERNAL COMPARISON : [facility], US ABDOMEN COMPLETE, February 15, 2017 INDICATIONS : Ascites. MEDICAL HISTORY : Benign prostatic hyperplasia, (BPH) Hernia, inguinal. Weakness. Asthma. GERD. Nocturia. Melanoma. B angel and squamous cell carcinoma. Psoriasis. ADD. Ascites. Depression. Anxiety. SURGICAL HISTORY : Septoplasty. Turbinectomy. Eye surgery. Left knee miniscus repair. Melanoma removed from face. Parace ntesis. ENCOUNTER: Subsequent ACUITY: 1 month PAIN SCORE: 4/10 LOCATION: Abdomen. AREA EVALUATED: Abdominal quadrants. FINDINGS: Imaging of the abdomen and pelvis was performed to evaluate for ascites for possible paracentesis. A tiny pocket of ascitic fluid is seen adjacent to the liver within the right upper quadrant. This is i nsufficient volume for safe paracentesis. CONCLUSION: Insufficient volume of ascites for safe paracentesis. Dheeraj Navas Jr., MD on August 15, 2017 at 12:14 Board Certified Radiologist. This report was verified electronically.
== END 2017-08-15 11:38 | disposition home or self-care (01) ==
LOC: HRAD 10:35 → HRIP 10:38 → HRAD 11:38
DX: R18.8 Other ascites (principal); K74.60 Unspecified cirrhosis of liver
CPT/HCPCS: 76705